=== PATIENT | male | born 1950 | race Caucasian/White ===

== ENCOUNTER 2017-03-18 10:36 | Inpatient (IN) | payer MEDICARE ==
[~2017-03-18] VITALS: Ht 180.3 cm; Wt 72.0 kg
[2017-03-18] MEDS ORDERED: ASPI81TA11 PO (12:48)
[2017-03-18] MEDS ORDERED: LAMI1TAB8 PO (12:56)
[2017-03-18] MEDS ORDERED: RILP25 PO (12:56)
[2017-03-18] MEDS ORDERED: ROSU1TAB4 PO (12:56)
[2017-03-18] MEDS ORDERED: OMEG100010 PO (12:56)
[2017-03-18] MEDS ORDERED: ENAL2.5T PO (12:56)
[2017-03-18] MEDS ORDERED: HYDR200T3 PO (12:56)
[2017-03-18] MEDS ORDERED: GABA600T PO (12:56)
[2017-03-18] MEDS ORDERED: VALA1TAB PO (13:00)
[2017-03-18] MEDS ORDERED: GLUC500C5 PO (13:00)
[2017-03-18] MEDS ORDERED: CHOL1CAP34 PO (13:00)
[2017-03-18] MEDS ORDERED: DOLU1TAB PO (13:00)
[2017-03-18] MEDS ORDERED: CETI10CA3 PO (13:00)
[2017-03-18] MEDS ORDERED: LACTCAP8 PO (13:00)
[2017-03-18] MEDS ORDERED: THERTAB17 PO (13:00)
[2017-03-21] VITALS (11 sets, daily range): BP systolic 117–186; BP diastolic 47–72; PULSE 65–108; RESP 10–20; TEMP 98.6–99.3; O2SAT 97–98
[2017-03-21] MEDS ORDERED: INSULIN HUMAN REGULAR 1,000 UNITS/10 ML VIAL SQ PRN (06:00)
[2017-03-21] MEDS ORDERED: METOPROLOL TARTRATE 25 MG TAB PO PRN (06:00)
[2017-03-21] MEDS ORDERED: SODIUM CHLORID 0.9% 500 ML IV PRN (06:00)
[2017-03-21] MEDS ORDERED: POVIDONE IODINE 5% (ANTISEPSIS KIT) 4 APPLICATIONS EACH NARE PRN (06:00)
[2017-03-21] MEDS ORDERED: LACTATED RINGER'S 1000 ML IV PRN (06:00)
[2017-03-21] MEDS ORDERED: CHLORHEXIDINE GLUCONATE 2 % 1 PACK (2 CLOTHS) TOPICAL PRN (06:00)
[2017-03-21] MEDS ORDERED: ALEV220T14 PO (06:32)
--- NOTE | 2017-03-21 06:50 | PD.VS.PN ---
Pre-operative Note Pre-operative diagnosis: PAD, L LE rest pain, severe aorto-iliac occlusive disease Planned procedure: aorto-bifemoral bypass Interval History: The patient has been feeling well since his clinic visits. Specifically, no F/C /N/V or other changes in his history that would preclude OR today. Labs: Hct 42 plt 186 INR 1.0 creatinine 1.0 Blood: T&C 2U EKG: no ST changes Imaging: CT reviewed - L iliac occlusion; B GIFT MANAGER disease Orders: NPO Vanc 1g IV OCTOR (PCN allergy) Post-operative destination: CVICU Operative site marked: No (not lateral surgery) Consent: Informed consent has been obtained from Montez Olivera. I have explained the procedure in detail and discussed the risks, benefits, and potential complications. All questions have been answered. Patient contact information: Shai De La Paz: [phone] Montez Perez MD Mar 21, 2017 06:50
[2017-03-21] MEDS ORDERED: PROTAMINE SULFATE 50 MG/5 ML VIAL ONE (06:59)
[2017-03-21] MEDS ORDERED: HEPARIN SODIUM - IV 10,000 UNITS/10 ML VIAL ONE (06:59)
[2017-03-21] MEDS ORDERED: THROMBIN (TOPICAL) 20,000 UNIT SPRAY KIT ONE (06:59)
[2017-03-21] MEDS ORDERED: VANCOMYCIN HCL 1000 MG VIAL ONE ×2 (07:10→11:10)
[2017-03-21] MEDS ORDERED: CHLORHEXIDINE GLUCONATE 2 % 1 PACK (2 CLOTHS) TOPICAL ONE (07:42)
[2017-03-21] MEDS ORDERED: fentaNYL CITRATE 250 MCG/5 ML AMP ONE (09:26)
[2017-03-21] MEDS ORDERED: PROPOFOL 200 MG/20 ML AMP IV ONE (11:59)
[2017-03-21] MEDS ORDERED: ONDANSETRON HCL 4 MG/2 ML VIAL IV PUSH ONE (11:59)
[2017-03-21] MEDS ORDERED: NORMOSOL R INJ 2,000 ML IV ONE (12:00)
[2017-03-21] MEDS ORDERED: LACTATED RINGER'S 1000 ML INJ 2,000 ML IV ONE (12:00)
--- NOTE | 2017-03-21 12:40 | HHI.PR ---
Immediate Post Op Note Procedure Date: Mar 21, 2017 Pre Op Diagnosis: PAD, L LE rest pain Post Op Diagnosis: PAD, L LE rest pain Surgeon: Montez Perez System Engineer(s): Sanya Palacios Procedure: 1. Aortobifemoral bypass (16x8 Dacron) 2. R profunda endarterectomy 3. L VENDING TECHNICIAN-SFA bypass (8mm Dacron) Findings: severe aortic calcifications Old L VENDING TECHNICIAN patch Additional Information: + Doppler signals B LE Complications: none apparent Specimen(s) removed: none Estimated blood loss: 550mL Anesthesia: General Drains: None Fluids: 4000 mL x'oid; 700 mL UOP IVF Patient to: Other (CVICU) Patient Condition: Good Implant/Devices: SEE IMPLANT LOG (if applicable) Date/Time of Procedure: SEE SURGICAL CARE RECORD Montez Perez MD Mar 21, 2017 12:39
[2017-03-21] MEDS ORDERED: NALOXONE HCL 0.4 MG/ML AMP IV PRN (12:45)
[2017-03-21] MEDS: LACTATED RINGER'S 1000 ML INJ 1,000 ML IV SCH (13:55)
[2017-03-21 13:57] LABS: MEAN CELL VOLUME 98.2 FL (80.0-100.0); MEAN CORPUSCULAR HEMOGLOBIN 32.6 PG (27.0-34.0); MEAN CORPUSCULAR HGB CONC 33.2 % (32.0-36.0); PLATELET COUNT 165 TH/MM3 (150-450); RED BLOOD COUNT 3.87 MIL/MM3 (4.50-5.90); RED CELL DISTRIBUTION WIDTH 13.7 % (11.6-17.2); REVIEW FLAG FINAL; WHITE BLOOD COUNT 17.7 TH/MM3 (4.0-11.0)
[2017-03-21] MEDS ORDERED: ENOXAPARIN SODIUM 30 MG/0.3 ML SYRINGE SQ SCH (14:00)
[2017-03-21] MEDS: PCA - TOTAL MG MORPHINE DELIVERED PER SHIFT SCH ×2 (14:00→22:00)
[2017-03-21] MEDS: MORPHINE SULFATE 30 MG/30 ML PCA IV SCH (14:09)
[2017-03-21 14:50] LABS: BICARBONATE 22.7 MEQ/L (21.0-32.0); POTASSIUM 4.1 MEQ/L (3.5-5.1)
[2017-03-21] MEDS ORDERED: hydrALAZINE HCL 20 MG/ML VIAL ONE (15:06)
[2017-03-21] MEDS: hydrALAZINE HCL 20 MG/ML VIAL IV PRN (15:57)
--- NOTE | 2017-03-21 16:00 | PD.CONS ---
[facility] Service Critical Care Medicine Consult Requested By Dr. Perez Reason for Consult post-operative hemodynamic management Primary Care Physician Teresa Greenberg MD History of Present Illness This is a 66yM with history of significant claudication, peripheral arterial disease, and left lower extremity rest pain. He underwent elective aortobifemoral bypass. Postoperatively he had good dopplerable PT pulses bilaterally. He received 4000 mL's crystalloid for an estimated blood loss of 550 mL's. Urine output was 700 mL's throughout the proximally 5 hour operative duration. He was extubated in of the case and taken to the intensive care unit for close monitoring and management of his hemodynamics. When I evaluated the patient he was recently postoperative and still arousing from anesthesia. I again confirmed his dopplerable PT pulses. The remainder of the history is unobtainable due to his somnolent state. He did tell me he denied significant pain and stated that his pain is adequately controlled. The remainder the review systems is negative unless otherwise specified in history of present illness. Review of Systems ROS Limitations: Clinical Condition, Altered Mental Status Respiratory: DENIES: Shortness of breath (patient arousing from anesthesia. limited ROS. otherwise negaive unless noted in the HPI.) Cardiovascular: DENIES: Chest pain ROS patient arousing from anesthesia. limited ROS. otherwise negaive unless noted in the HPI. Past Family Social History Allergies: Coded Allergies: Augmentin (Verified Allergy, Severe, blisters, 03/21/17) Bactrim (Verified Allergy, Severe, blisters, 03/21/17) Doxycycline (Verified Allergy, Severe, blisters, 03/21/17) Lactose (Verified Adverse Reaction, Severe, GI UPSET, 03/21/17) Past Medical History Hypertension Hyperlipidemia Peripheral vascular disease Past Surgical History Postop day 0 status post aortobifemoral bypass Reported Medications The patient's complete home medication list has been reviewed in the medical record area and the patient cannot provide me a complete list given his altered mental status arousing from anesthesia Active Ordered Medications See MAR Family History Reviewed and found to be noncontributory to his acute illness Social History Does not smoke Physical Exam Vital Signs Vital Signs Date Time Temp Pulse Resp B/P Pulse Ox O2 Delivery O2 Flow Rate FiO2 03/21/17 15:16 98.6 92 14 172/62 97 186/70 03/21/17 15:15 92 03/21/17 14:34 10 03/21/17 14:30 98.6 84 14 138/72 97 147/52 03/21/17 14:09 12 03/21/17 13:42 80 03/21/17 06:36 98.9 65 18 148/66 98 Physical Exam GENERAL: Middle-aged male, lying in bed, arousing from anesthesia, somnolent HEENT: Normocephalic. Atraumatic. Pupils equal, round, reactive, conjugate. Mucous membranes are moist NECK: Trachea is midline. There is no JVD. CHEST: Unlabored, equal chest rise, airway patent. On oxygen by face mask at 4 L CARDIOVASCULAR: Rate, regular rhythm. Systolic blood pressure 146. ABDOMEN: Soft, mildly and appropriately tender to palpation, nondistended. No guarding. Midline abdominal dressing clean dry and intact MUSCULOSKELETAL:. No peripheral edema. Bilateral groin dressings with wound vacs intact. No hematoma. Distal PT pulses dopplerable. NEUROLOGICAL: RASS -2. Recently arousing from anesthesia. No gross focal motor or sensory deficits. Laboratory Laboratory Tests Test 03/21/17 03/21/17 06:20 13:32 Blood Type O POSITIVE Antibody Screen NEGATIVE Crossmatch Leukocyte-Reduced Red Blood Cells Blood Bank Comment White Blood Count 17.7 Red Blood Count 3.87 Hemoglobin 12.6 Hematocrit 38.0 Mean Corpuscular Volume 98.2 Mean Corpuscular Hemoglobin 32.6 Mean Corpuscular Hemoglobin 33.2 Concent Red Cell Distribution Width 13.7 Platelet Count 165 Mean Platelet Volume 8.8 Sodium Level 142 Potassium Level 4.1 Chloride Level 108 Carbon Dioxide Level 22.7 Anion Gap 11 Blood Urea Nitrogen 17 Creatinine 1.18 Estimat Glomerular Filtration 61 Rate Random Glucose 148 Calcium Level 7.7 Result Diagram: 03/21/17 1332 03/21/17 1332 Assessment and Plan Assessment and Plan Assessment: This is a 66-year-old male postop day 0 status post aortobifemoral bypass for left lower extremity rest pain. Agree with admission to the ICU for close monitoring. s/p Aortobifemoral Bypass -- goal sbp 140 - 160 -- close monitoring of urine output -- frequent neurovascular checks Intravascular volume depletion -- 500cc LR bolus -- increase MIVF to 125 cc/hr Acute post-operative pain -- oxycodone, dilaudid prn NPO. SCDs. Remain in ICU. Critical Care medicine will continue to follow along. Johnson Guadalupe MD Mar 21, 2017 16:00
[2017-03-21] MEDS ORDERED: LACTATED RINGER'S 1000 ML INJ 500 ML IV ONE (17:15)
[2017-03-21] MEDS: RILPIVIRINE 25 MG TAB PO SCH (21:00)
[2017-03-21] MEDS: GABAPENTIN 300 MG CAP PO SCH (23:01)
[2017-03-21] MEDS: ATORVASTATIN 40 MG TAB PO SCH (23:01)
[2017-03-21] MEDS: ENALAPRIL MALEATE 2.5 MG TAB PO SCH (23:01)
[2017-03-21] MEDS: FAMOTIDINE 20 MG TAB PO SCH (23:01)
[2017-03-21] MEDS: valACYclovir HCL 500 MG TAB PO SCH (23:02)
[2017-03-22] VITALS (10 sets, daily range): BP systolic 138–183; BP diastolic 53–83; PULSE 97–110; RESP 15–20; TEMP 97.5–99.4; O2SAT 93–98
[2017-03-22] MEDS: LACTATED RINGER'S 1000 ML INJ 1,000 ML IV SCH ×3 (02:57→18:03)
[2017-03-22 05:33] LABS: HEMATOCRIT 37.9 % (39.0-51.0); MEAN CELL VOLUME 97.5 FL (80.0-100.0); MEAN CORPUSCULAR HEMOGLOBIN 31.6 PG (27.0-34.0); MEAN CORPUSCULAR HGB CONC 32.4 % (32.0-36.0); PLATELET COUNT 158 TH/MM3 (150-450); RED BLOOD COUNT 3.89 MIL/MM3 (4.50-5.90); RED CELL DISTRIBUTION WIDTH 13.8 % (11.6-17.2); REVIEW FLAG FINAL; WHITE BLOOD COUNT 11.3 TH/MM3 (4.0-11.0)
[2017-03-22] MEDS: PCA - TOTAL MG MORPHINE DELIVERED PER SHIFT SCH ×3 (06:00→22:00)
[2017-03-22 06:26] LABS: BICARBONATE 24.7 MEQ/L (21.0-32.0); POTASSIUM 4.3 MEQ/L (3.5-5.1)
--- NOTE | 2017-03-22 07:04 | PD.VS.PN ---
Subjective POD #: 1 Procedure(s): ABF and bilateral groin reconstructions Subjective/Hospital Course doing well overnight. Sore in abdomen but otherwise ok. Feet don't bother him Objective Vitals/I&O Date Time Temp Pulse Resp B/P Pulse Ox O2 Delivery O2 Flow Rate FiO2 03/22/17 00:00 99.2 104 18 146/64 97 138/53 03/22/17 00:00 97 Nasal Cannula 4.00 03/21/17 22:00 20 03/21/17 22:00 16 03/21/17 21:25 97 Nasal Cannula 4.00 03/21/17 20:00 99.3 108 18 117/47 97 03/21/17 20:00 97 Nasal Cannula 4.00 03/21/17 16:08 103 16 154/55 97 03/21/17 16:00 98 Nasal Cannula 4.00 03/21/17 15:16 98.6 92 14 172/62 97 186/70 03/21/17 15:15 92 03/21/17 14:34 10 03/21/17 14:30 98.6 84 14 138/72 97 147/52 03/21/17 14:09 12 03/21/17 13:42 80 03/21/17 13:00 97 Nasal Cannula 4.00 Exam: resting comfortably Pulses: Strong Doppler signals B PT Incisions: B groin vacs in place Laboratory Laboratory Tests Test 03/21/17 03/22/17 13:32 04:40 White Blood Count 17.7 11.3 Red Blood Count 3.87 3.89 Hemoglobin 12.6 12.3 Hematocrit 38.0 37.9 Mean Corpuscular Volume 98.2 97.5 Mean Corpuscular Hemoglobin 32.6 31.6 Mean Corpuscular Hemoglobin 33.2 32.4 Concent Red Cell Distribution Width 13.7 13.8 Platelet Count 165 158 Mean Platelet Volume 8.8 8.8 Sodium Level 142 139 Potassium Level 4.1 4.3 Chloride Level 108 106 Carbon Dioxide Level 22.7 24.7 Anion Gap 11 8 Blood Urea Nitrogen 17 19 Creatinine 1.18 1.09 Estimat Glomerular Filtration 61 67 Rate Random Glucose 148 119 Calcium Level 7.7 7.9 Assessment and Plan Plan doing well 1. AROBF - leave NGT in until flatus given very bilious in color; 2. OOB TC 3. Ok to have ice chips for comfort with NGT working 4. D/C Bandar 5. Ok to transfer to [facility] on tele Montez Perez MD Mar 22, 2017 07:04
[2017-03-22] MEDS: MORPHINE SULFATE 30 MG/30 ML PCA IV SCH ×2 (08:53→20:26)
[2017-03-22] MEDS ORDERED: NON-FORMULARY DRUG (Glucosamine 500 MG) PO SCH (09:00)
[2017-03-22] MEDS ORDERED: ERGOCALCIFEROL (VIT D2) 50,000 UNIT CAP PO SCH (09:00)
[2017-03-22] MEDS ORDERED: NON-FORMULARY DRUG (Omega-3 Fatty Acids (Omega 3 1000 mg) 1 CAP) PO SCH (09:00)
--- NOTE | 2017-03-22 09:12 | MP ---
cc: CCList DATE OF SURGERY 03/21/2017 PREOPERATIVE DIAGNOSIS Peripheral arterial occlusive disease, left lower extremity rest pain, aortoiliac occlusive disease. POSTOPERATIVE DIAGNOSIS Peripheral arterial occlusive disease, left lower extremity rest pain, aortoiliac occlusive disease. PROCEDURE 1. Aortobifemoral bypass graft. 2. Right profunda endarterectomy. 3. Left common femoral to superficial femoral artery bypass. MEDICATIONS Montez Perez MD GUNNER'S MATE G SURGEON Sanya Palacios ANESTHESIA General MEDICATIONS Mr. Olivera is a 66-year-old gentleman with peripheral vascular occlusive disease and failed stents and left groin reconstruction. He has no palpable femoral pulse on the left and he has rest pain. He is taken to the operating room for AV aortobifemoral bypass grafting for reconstruction. DESCRIPTION OF THE PROCEDURE Informed consent was obtained from the patient. He was taken to the operating room, placed supine on the operating table and an appropriate time-out was taken to ensure the patient's identity, the operative site and planned procedure. One gram of vancomycin was initiated prior to skin incision and will be discontinued after a single preoperative dose. Vancomycin was chosen because of the patient's penicillin allergy. Everyone in the room agreed with the time-out and we proceeded. He was prepped from his nipples to his toes. A vertical incision was made in the patient's groin and carried down to through subcutaneous tissues with electrocautery. The left groin was densely scarred due to previous groin arterial reconstruction, but the external iliac artery was dissected free and encircled with a Vesseloop as well as two profunda branches and the SFA. On the right-hand side, the two profunda branches were similarly identified and dissected free as well as the external artery and the SFA. We then turned our attention towards the abdominal exposure. A midline incision was made just below the Xiphoid below the umbilicus, carried down to the subcutaneous tissue with electrocautery. The fascia was divided with electrocautery and the perineum was sharply entered. The abdominal contents were explored. There was no obvious other pathology noted. The Bookwalter retractor was then set up and the intestines were swept to the patient's right hand side. The ligament Treitz was incised thereby freeing the proximal jejunum and the jejunum was swept to the patient's right hand side. The retroperitoneum was incised and the aorta was identified from the inferior mesenteric artery all the way up to the renal arteries. We found a place that was sufficient to place a clamp and then using blunt dissection, the retroperitoneal tunnel was created between the groin incisions and the terminal aorta. Long aortic clamps were placed through these tunnels. The patient was systemically heparinized and throughout the remainder of the case, the ACT was kept greater than 250. Proximal and distal control of the immediate infrarenal aorta was obtained with a [place] and [place]akey aortic clamps respectively and the aorta was opened longitudinally and a 16 x 8 Dacron was spatulated and sewn end-to-side with running 3-0 Prolene sutures. At the completion, it was flushed and remained hemostatic with several 4-0 pledgeted Prolene sutures. The aortic clamps were released and the end-to-side anastomosis looked quite nice and was hemostatic. Tay soft jaw clamps were placed on the aVF limbs and the limbs were then passed through the tunnels taking caution not to twist it. On the right-hand side, proximal and distal control of the external iliac artery, common femoral, and profunda were obtained with profunda clamps and a longitudinal arteriotomy was made with an 11 blade and extended with Elim scissors. The entire common femoral and profunda was endarterectomized without difficulty and a nice endpoint profunda was obtained. The graft was cut to an appropriate length, spatulated and sewn end-to-side to the right common femoral artery with running 5-0 Prolene suture. The lesion was flushed and remained hemostatic. Clamps were released. There was a nice Doppler signal in the profunda and SFA. On the left-hand side, the external iliac artery profunda branch and SFA were clamped with profunda clamps and a longitudinal arteriotomy was made through the previous patch and the patch was excised. The SFA was noted to be occluded proximally and the SFA was then dissected down further caudally at which point it was softer and it was then at this point clamped with profunda clamps and the proximal SFA was resected. The ABF limb was then cut to an appropriate length, spatulated and sewn onto the profunda and the common femoral artery using running 5-0 Prolene suture. At completion, it was flushed and noted to be hemostatic. Clamps were released. There was a nice pulse in the profunda. The clamp was then reapplied and the pepper of the patch was opened with an 11 blade and extended with Gerson scissors and a piece of 8 mm Dacron was spatulated and sewn end-to-side to the ABF limb using running 5-0 Prolene suture and then end-to-end to the SFA using running 5-0 Prolene suture. At the completion, all the clamps released and there was a nice pulse in the SFA. There were strong Doppler signals in the posterior tibial at the ankles. The heparin was reversed with protamine. Vancomycin powder was infiltrated and spread into the wounds in the groin. The abdominal contents were then explored. The aorta and its reconstruction was retroperitonealized with 2-0 Polysorb and the abdominal contents were allowed to return to their normal anatomic position. The nasogastric tube was palpated and noted to be in good position. The fascia was closed with #1 looped PDS. The skin was then closed with 2-0 Polysorb and 4-0 Monocryl. In the groins after achieving hemostasis, the groins were closed with 2-0 Polysorb, 3-0 Polysorb and 4-0 Monocryl. Sponge and needle counts were correct at the end of the case. I was present and scrubbed for the entire procedure. MD CUAUHTEMOC Peralta/PRISCILLA /7:19 AM /8:57 AM
[2017-03-22] MEDS ORDERED: NON-FORMULARY DRUG (Rosuvastatin 5 MG) PO SCH (12:45)
[2017-03-22] MEDS: CETIRIZINE HCL 10 MG TAB PO SCH (13:39)
[2017-03-22] MEDS: ENOXAPARIN SODIUM 30 MG/0.3 ML SYRINGE SQ SCH (13:39)
[2017-03-22] MEDS: DOLUTEGRAVIR SODIUM 50 MG TAB PO SCH (13:39)
[2017-03-22] MEDS: HYDROXYCHLOROQUINE SULFATE 200 MG TAB PO SCH (13:39)
[2017-03-22] MEDS: FAMOTIDINE 20 MG TAB PO SCH ×2 (13:41→22:16)
[2017-03-22] MEDS: hydrALAZINE HCL 20 MG/ML VIAL IV PRN (15:16)
--- NOTE | 2017-03-22 16:29 | HHI.CCPN ---
Subjective Remarks/Hospital Course Hospital Course: This is a 66yM with history of significant claudication, peripheral arterial disease, and left lower extremity rest pain. He underwent elective aortobifemoral bypass. Postoperatively he had good dopplerable PT pulses bilaterally. He received 4000 mL's crystalloid for an estimated blood loss of 550 mL's. Urine output was 700 mL's throughout the proximally 5 hour operative duration. He was extubated in of the case and taken to the intensive care unit for close monitoring and management of his hemodynamics. When I evaluated the patient he was recently postoperative and still arousing from anesthesia. I again confirmed his dopplerable PT pulses. The remainder of the history is unobtainable due to his somnolent state. He did tell me he denied significant pain and stated that his pain is adequately controlled. The remainder the review systems is negative unless otherwise specified in history of present illness. Subjective: 03/22: doing well. pain adequately controlled. no ROBF yet. Objective Vital Signs Date Time Temp Pulse Resp B/P Pulse Ox O2 Delivery O2 Flow Rate FiO2 03/22/17 15:21 97.5 103 16 177/83 96 183/73 03/22/17 15:21 Nasal Cannula 5.00 Intake and Output 03/21/17 03/21/17 03/21/17 07:59 15:59 23:59 Intake Total 600 ml Output Total 425 ml Balance 175 ml Result Diagram: 03/22/1743903/22/17439 Objective Remarks GENERAL: Middle-aged male, lying in bed, no acute distress. HEENT: Normocephalic. Atraumatic. Pupils equal, round, reactive, conjugate. Mucous membranes are moist NECK: Trachea is midline. There is no JVD. CHEST: Unlabored, equal chest rise, airway patent. nc o2. CARDIOVASCULAR: Rate, regular rhythm. sinus by tele. ABDOMEN: Soft, mildly and appropriately tender to palpation, nondistended. No guarding. Midline abdominal dressing clean dry and intact MUSCULOSKELETAL:. No peripheral edema. Bilateral groin dressings with wound vacs intact. No hematoma. Distal PT pulses dopplerable. NEUROLOGICAL: RASS 0. fc x 4. A/P Assessment and Plan Assessment: This is a 66-year-old male postop day 1 status post aortobifemoral bypass for left lower extremity rest pain. Clinically doing well. ok for transfer to floor. s/p Aortobifemoral Bypass -- goal sbp 140 - 160 -- close monitoring of urine output -- frequent neurovascular checks Intravascular volume depletion -- decrease MIVF to 75 cc/hr Acute post-operative pain -- oxycodone, dilaudid prn NPO. SCDs. CCM will sign-off. Johnson Guadalupe MD Mar 22, 2017 16:29
[2017-03-22] MEDS: RILPIVIRINE 25 MG TAB PO SCH (22:16)
[2017-03-22] MEDS: ATORVASTATIN 40 MG TAB PO SCH (22:16)
[2017-03-22] MEDS: GABAPENTIN 300 MG CAP PO SCH (22:16)
[2017-03-22] MEDS: valACYclovir HCL 500 MG TAB PO SCH (22:16)
[2017-03-22] MEDS: ENALAPRIL MALEATE 2.5 MG TAB PO SCH (22:16)
[2017-03-23] VITALS (23 sets, daily range): BP systolic 128–159; BP diastolic 59–73; PULSE 101–117; RESP 16–18; TEMP 98–100.2; O2SAT 94–96
[2017-03-23] MEDS: PCA - TOTAL MG MORPHINE DELIVERED PER SHIFT SCH ×3 (05:49→21:23)
--- NOTE | 2017-03-23 09:09 | PD.VS.PN ---
Subjective POD #: 2 Procedure(s): ABF and bilateral groin reconstructions Subjective/Hospital Course c/o abdominal soreness and no flatus yet groins also sore feet ok Objective Vitals/I&O Date Time Temp Pulse Resp B/P Pulse Ox O2 Delivery O2 Flow Rate FiO2 03/23/17 06:00 18 03/23/17 05:49 16 03/23/17 04:00 98.2 114 16 159/69 94 03/23/17 03:35 95 Nasal Cannula 3.00 03/23/17 03:35 117 03/23/17 00:00 95 Nasal Cannula 3.00 03/23/17 00:00 117 03/23/17 00:00 18 03/23/17 00:00 98.6 117 16 146/69 95 03/22/17 22:00 18 03/22/17 22:00 16 03/22/17 20:26 18 03/22/17 20:00 97 Nasal Cannula 4.00 03/22/17 20:00 98.6 110 18 153/76 97 Arterial Line 03/22/17 20:00 110 03/22/17 20:00 18 03/22/17 19:46 96 Nasal Cannula 3.00 03/22/17 15:21 97.5 103 16 177/83 96 183/73 03/22/17 15:21 103 03/22/17 15:21 96 Nasal Cannula 5.00 03/22/17 15:21 15 03/22/17 14:00 16 03/22/17 11:00 166/71 169/57 03/22/17 11:00 97 03/22/17 11:00 93 Nasal Cannula 5.00 03/22/17 11:00 99.4 97 16 166/71 93 169/57 03/23/17 03/23/17 03/23/17 06:59 14:59 22:59 Intake Total 803 ml Output Total 430 ml Balance 373 ml Exam: sitting in chair abdomen slightly distended NGT output bilious Feet warm groins soft Assessment and Plan Plan doing well 1. AROBF - leave NGT in until flatus given very bilious in color; 2. May have to replace Portillo if no UOP after out 3. Ok to have ice chips for comfort with NGT working 4. Continue PT Discharge Planning likely mid-week Montez Perez MD Mar 23, 2017 09:08
[2017-03-23] MEDS: LACTATED RINGER'S 1000 ML INJ 1,000 ML IV SCH ×2 (09:45→23:30)
[2017-03-23] MEDS: DOLUTEGRAVIR SODIUM 50 MG TAB PO SCH (09:46)
[2017-03-23] MEDS: FAMOTIDINE 20 MG TAB PO SCH ×2 (09:46→21:11)
[2017-03-23] MEDS: CETIRIZINE HCL 10 MG TAB PO SCH (09:46)
[2017-03-23] MEDS: ASPIRIN 325 MG TAB PO SCH (09:57)
[2017-03-23] MEDS: ENOXAPARIN SODIUM 30 MG/0.3 ML SYRINGE SQ SCH (11:48)
[2017-03-23] MEDS: RILPIVIRINE 25 MG TAB PO SCH (21:10)
[2017-03-23] MEDS: GABAPENTIN 300 MG CAP PO SCH (21:10)
[2017-03-23] MEDS: valACYclovir HCL 500 MG TAB PO SCH (21:11)
[2017-03-23] MEDS: ENALAPRIL MALEATE 2.5 MG TAB PO SCH (21:11)
[2017-03-23] MEDS: METOPROLOL TARTRATE 25 MG TAB PO SCH (21:11)
[2017-03-23] MEDS: ATORVASTATIN 40 MG TAB PO SCH (21:11)
[2017-03-24] VITALS (29 sets, daily range): BP systolic 129–161; BP diastolic 57–72; PULSE 84–103; RESP 16–20; TEMP 97.8–100.3; O2SAT 92–95
[2017-03-24] MEDS: MORPHINE SULFATE 30 MG/30 ML PCA IV SCH ×2 (02:59→23:32)
[2017-03-24] MEDS: PCA - TOTAL MG MORPHINE DELIVERED PER SHIFT SCH ×3 (06:00→22:00)
[2017-03-24 06:05] LABS: HEMATOCRIT 30.7 % (39.0-51.0); MEAN CELL VOLUME 97.6 FL (80.0-100.0); MEAN CORPUSCULAR HEMOGLOBIN 33.2 PG (27.0-34.0); PLATELET COUNT 145 TH/MM3 (150-450); RED BLOOD COUNT 3.15 MIL/MM3 (4.50-5.90); RED CELL DISTRIBUTION WIDTH 13.3 % (11.6-17.2); REVIEW FLAG FINAL
[2017-03-24 06:33] LABS: POTASSIUM 3.7 MEQ/L (3.5-5.1)
--- NOTE | 2017-03-24 07:34 | PD.VS.PN ---
Subjective POD #: 3 Procedure(s): ABF and bilateral groin reconstructions Subjective/Hospital Course Bandar replaced yesterday which made him feel better. Abdomen still distended No flatus yet but no nausea Objective Vitals/I&O Date Time Temp Pulse Resp B/P Pulse Ox O2 Delivery O2 Flow Rate FiO2 03/24/17 06:11 18 03/24/17 06:00 98 03/24/17 06:00 18 03/24/17 05:05 94 Nasal Cannula 2.00 03/24/17 05:04 98.5 95 16 138/66 94 03/24/17 05:00 100 03/24/17 04:00 96 03/24/17 03:00 100 03/24/17 02:59 18 03/24/17 02:00 98 03/24/17 01:00 100 03/24/17 00:00 94 03/23/17 23:43 96 Nasal Cannula 2.00 03/23/17 23:41 99.0 102 18 147/66 96 03/23/17 23:00 102 03/23/17 22:00 102 03/23/17 22:00 16 03/23/17 21:23 16 03/23/17 21:00 114 03/23/17 20:00 106 03/23/17 19:45 100.2 109 18 141/64 95 03/23/17 19:00 107 03/23/17 19:00 96 Nasal Cannula 2.00 03/23/17 18:00 108 03/23/17 17:00 108 03/23/17 16:00 106 03/23/17 15:00 98.0 105 16 158/59 95 03/23/17 15:00 16 03/23/17 15:00 95 Nasal Cannula 1.00 03/23/17 14:00 107 03/23/17 13:54 16 03/23/17 13:00 101 03/23/17 12:00 103 03/23/17 11:00 98.1 102 16 128/60 95 03/23/17 11:00 102 03/23/17 11:00 95 Nasal Cannula 2.00 03/23/17 11:00 16 03/23/17 10:00 101 03/23/17 09:00 104 03/23/17 09:00 16 03/23/17 09:00 96 Nasal Cannula 3.00 03/23/17 09:00 98.4 104 16 151/73 96 03/23/17 08:00 103 03/24/17 03/24/17 03/24/17 07:00 15:00 23:00 Intake Total 780 ml Output Total 970 ml Balance -190 ml Exam: abdomen less distended than yesterday Groin vacs in place Strong pedal signals Laboratory Laboratory Tests Test 03/24/17 05:54 White Blood Count 13.0 Red Blood Count 3.15 Hemoglobin 10.4 Hematocrit 30.7 Mean Corpuscular Volume 97.6 Mean Corpuscular Hemoglobin 33.2 Mean Corpuscular Hemoglobin 34.0 Concent Red Cell Distribution Width 13.3 Platelet Count 145 Mean Platelet Volume 8.9 Sodium Level 141 Potassium Level 3.7 Chloride Level 107 Carbon Dioxide Level 25.0 Anion Gap 9 Blood Urea Nitrogen 21 Creatinine 0.91 Estimat Glomerular Filtration 83 Rate Random Glucose 83 Calcium Level 8.4 Assessment and Plan Plan doing well 1. AROBF - NGT removed this morning and will progress to clear liq when + flatus ; 2. Remove Portillo tomorrow 3. Continue PT/OOB Discharge Planning likely mid-week Montez Perez MD Mar 24, 2017 07:34
[2017-03-24] MEDS: CETIRIZINE HCL 10 MG TAB PO SCH (09:48)
[2017-03-24] MEDS: ASPIRIN 325 MG TAB PO SCH (09:49)
[2017-03-24] MEDS: METOPROLOL TARTRATE 25 MG TAB PO SCH ×2 (09:49→22:16)
[2017-03-24] MEDS: FAMOTIDINE 20 MG TAB PO SCH ×2 (09:50→22:15)
[2017-03-24] MEDS: DOLUTEGRAVIR SODIUM 50 MG TAB PO SCH (09:50)
[2017-03-24] MEDS: ENOXAPARIN SODIUM 30 MG/0.3 ML SYRINGE SQ SCH (12:08)
[2017-03-24] MEDS: LACTATED RINGER'S 1000 ML INJ 1,000 ML IV SCH (14:22)
[2017-03-24] MEDS: valACYclovir HCL 500 MG TAB PO SCH ×3 (21:00→22:27)
[2017-03-24] MEDS: GABAPENTIN 300 MG CAP PO SCH (22:15)
[2017-03-24] MEDS: ENALAPRIL MALEATE 2.5 MG TAB PO SCH (22:15)
[2017-03-24] MEDS: ATORVASTATIN 40 MG TAB PO SCH (22:15)
[2017-03-24] MEDS: RILPIVIRINE 25 MG TAB PO SCH (22:16)
[2017-03-25] VITALS (27 sets, daily range): BP systolic 113–175; BP diastolic 54–78; PULSE 80–96; RESP 18–20; TEMP 97.8–99.5; O2SAT 92–97
[2017-03-25] MEDS: PCA - TOTAL MG MORPHINE DELIVERED PER SHIFT SCH (04:49)
[2017-03-25] MEDS: LACTATED RINGER'S 1000 ML INJ 1,000 ML IV SCH (06:17)
--- NOTE | 2017-03-25 07:45 | PD.VS.PN ---
Subjective POD #: 4 Procedure(s): ABF and bilateral groin reconstructions Subjective/Hospital Course no flatus but no nausea since NGT removed yesterday morning Sitting in chair Objective Vitals/I&O Date Time Temp Pulse Resp B/P Pulse Ox O2 Delivery O2 Flow Rate FiO2 03/25/17 07:00 94 Nasal Cannula 2.00 03/25/17 07:00 86 03/25/17 07:00 98.9 90 20 129/66 94 03/25/17 06:00 86 03/25/17 05:00 88 03/25/17 04:50 18 03/25/17 04:49 18 03/25/17 04:44 94 Nasal Cannula 2.00 03/25/17 04:43 98.9 90 18 121/67 94 03/25/17 04:00 86 03/25/17 03:00 90 03/25/17 02:00 92 03/25/17 01:00 86 03/25/17 00:23 95 Nasal Cannula 2.00 03/25/17 00:00 90 03/24/17 23:32 18 03/24/17 23:15 94 18 136/68 95 03/24/17 23:00 95 03/24/17 22:00 18 03/24/17 22:00 96 03/24/17 22:00 18 03/24/17 21:00 96 03/24/17 20:00 96 03/24/17 19:50 94 Nasal Cannula 2.00 03/24/17 19:50 98.5 95 16 161/72 94 03/24/17 19:00 87 03/24/17 18:03 89 03/24/17 17:11 87 03/24/17 16:33 95 Nasal Cannula 2.00 03/24/17 16:00 87 03/24/17 15:04 95 Nasal Cannula 2.00 03/24/17 15:04 86 03/24/17 15:04 97.8 91 18 130/65 95 03/24/17 14:00 96 03/24/17 14:00 18 03/24/17 14:00 18 03/24/17 13:00 94 03/24/17 12:00 84 03/24/17 11:00 85 03/24/17 11:00 93 Nasal Cannula 2.00 03/24/17 11:00 98.7 96 20 133/65 93 03/24/17 10:00 96 03/24/17 09:00 92 03/24/17 08:00 98 03/25/17 03/25/17 03/25/17 06:59 14:59 22:59 Intake Total 990 ml Output Total 775 ml Balance 215 ml Exam: resting comfortably abdomen mildly tender Assessment and Plan Plan doing well 1. clear liq diet 2. PT/OOB and ambulate 3. Portillo out again today 4. po pain meds and d/c Portillo Discharge Planning likely mid-week Montez Perez MD Mar 25, 2017 07:45
[2017-03-25] MEDS: DOLUTEGRAVIR SODIUM 50 MG TAB PO SCH (09:04)
[2017-03-25] MEDS: CETIRIZINE HCL 10 MG TAB PO SCH (09:05)
[2017-03-25] MEDS: FAMOTIDINE 20 MG TAB PO SCH ×2 (09:05→20:05)
[2017-03-25] MEDS: ASPIRIN 325 MG TAB PO SCH (09:05)
[2017-03-25] MEDS: METOPROLOL TARTRATE 25 MG TAB PO SCH ×2 (09:05→20:03)
[2017-03-25] MEDS: HYDROXYCHLOROQUINE SULFATE 200 MG TAB PO SCH (09:05)
[2017-03-25] MEDS: ENOXAPARIN SODIUM 30 MG/0.3 ML SYRINGE SQ SCH (12:04)
[2017-03-25] MEDS: oxyCODONE/ACETAMINOPHEN 5 MG/325 MG TAB PO PRN ×2 (14:21→20:04)
[2017-03-25] MEDS: valACYclovir HCL 500 MG TAB PO SCH (20:03)
[2017-03-25] MEDS: GABAPENTIN 300 MG CAP PO SCH (20:03)
[2017-03-25] MEDS: ATORVASTATIN 40 MG TAB PO SCH (20:03)
[2017-03-25] MEDS: ENALAPRIL MALEATE 2.5 MG TAB PO SCH (20:04)
[2017-03-25] MEDS: RILPIVIRINE 25 MG TAB PO SCH (20:14)
[2017-03-26] VITALS (25 sets, daily range): BP systolic 112–169; BP diastolic 54–83; PULSE 73–108; RESP 16–21; TEMP 98–99.9; O2SAT 91–97
[2017-03-26 06:23] LABS: HEMATOCRIT 31.1 % (39.0-51.0); MEAN CELL VOLUME 95.9 FL (80.0-100.0); MEAN CORPUSCULAR HEMOGLOBIN 33.4 PG (27.0-34.0); MEAN CORPUSCULAR HGB CONC 34.9 % (32.0-36.0); PLATELET COUNT 186 TH/MM3 (150-450); RED BLOOD COUNT 3.24 MIL/MM3 (4.50-5.90); REVIEW FLAG FINAL; WHITE BLOOD COUNT 8.8 TH/MM3 (4.0-11.0)
[2017-03-26 06:50] LABS: BICARBONATE 24.8 MEQ/L (21.0-32.0); POTASSIUM 3.1 MEQ/L (3.5-5.1)
--- NOTE | 2017-03-26 07:29 | PD.VS.PN ---
Subjective POD #: 5 Procedure(s): ABF and bilateral groin reconstructions Subjective/Hospital Course feels well; + flatus. + UOP with Portillo out OOB and ambulated Objective Vitals/I&O Date Time Temp Pulse Resp B/P Pulse Ox O2 Delivery O2 Flow Rate FiO2 03/26/17 06:01 97 03/26/17 05:01 101 03/26/17 04:06 85 03/26/17 03:01 91 Room Air 03/26/17 03:01 90 03/26/17 03:01 98.5 95 18 169/78 91 03/26/17 02:01 102 03/26/17 01:01 84 03/26/17 00:01 82 03/25/17 23:01 98.6 83 18 126/59 92 03/25/17 23:01 92 Room Air 03/25/17 23:01 82 03/25/17 22:01 18 03/25/17 22:01 86 03/25/17 21:01 90 03/25/17 20:01 80 03/25/17 19:01 82 03/25/17 19:01 99.5 86 18 175/78 97 03/25/17 19:01 97 Room Air 03/25/17 18:00 83 03/25/17 17:00 81 03/25/17 16:00 91 03/25/17 15:49 19 03/25/17 15:00 93 03/25/17 15:00 98.0 90 18 134/64 94 03/25/17 15:00 94 Room Air 03/25/17 14:02 80 03/25/17 13:00 92 03/25/17 12:00 87 03/25/17 11:05 95 Nasal Cannula 1.00 03/25/17 11:05 97.8 83 20 113/54 95 03/25/17 11:00 84 03/25/17 10:00 96 03/25/17 09:00 86 03/25/17 08:00 84 03/26/17 03/26/17 03/26/17 07:00 15:00 23:00 Intake Total 240 ml Output Total 650 ml Balance -410 ml Exam: abdomen slightly distended, baseline Feet warm Got OOB with me and ambulated well to chair Incisions: abdominal and groin incisions c/d/i Laboratory Laboratory Tests Test 03/26/17 05:26 White Blood Count 8.8 Red Blood Count 3.24 Hemoglobin 10.8 Hematocrit 31.1 Mean Corpuscular Volume 95.9 Mean Corpuscular Hemoglobin 33.4 Mean Corpuscular Hemoglobin 34.9 Concent Red Cell Distribution Width 13.0 Platelet Count 186 Mean Platelet Volume 8.9 Sodium Level 141 Potassium Level 3.1 Chloride Level 106 Carbon Dioxide Level 24.8 Anion Gap 10 Blood Urea Nitrogen 19 Creatinine 0.84 Estimat Glomerular Filtration 91 Rate Random Glucose 89 Calcium Level 8.5 Assessment and Plan Plan doing well 1. reg diet 2. PT/OOB and ambulate 3. Replace K and recheck BMP tomorrow 4. d/c planning Discharge Planning to rehab Montez Perez MD Mar 26, 2017 07:29
[2017-03-26] MEDS: METOPROLOL TARTRATE 25 MG TAB PO SCH ×2 (08:52→21:42)
[2017-03-26] MEDS: CETIRIZINE HCL 10 MG TAB PO SCH (08:52)
[2017-03-26] MEDS: ASPIRIN 325 MG TAB PO SCH (08:52)
[2017-03-26] MEDS: oxyCODONE/ACETAMINOPHEN 5 MG/325 MG TAB PO PRN ×3 (08:52→23:05)
[2017-03-26] MEDS: FAMOTIDINE 20 MG TAB PO SCH ×2 (08:52→21:41)
[2017-03-26] MEDS: DOLUTEGRAVIR SODIUM 50 MG TAB PO SCH (08:53)
[2017-03-26] MEDS: POTASSIUM CHLORIDE 10 MEQ CONTROLLED RELEASE TAB PO SCH ×2 (08:53→21:42)
[2017-03-26] MEDS: ENOXAPARIN SODIUM 30 MG/0.3 ML SYRINGE SQ SCH (12:32)
[2017-03-26] MEDS: RILPIVIRINE 25 MG TAB PO SCH (21:41)
[2017-03-26] MEDS: valACYclovir HCL 500 MG TAB PO SCH (21:41)
[2017-03-26] MEDS: ATORVASTATIN 40 MG TAB PO SCH (21:41)
[2017-03-26] MEDS: GABAPENTIN 300 MG CAP PO SCH (21:41)
[2017-03-26] MEDS: ENALAPRIL MALEATE 2.5 MG TAB PO SCH (21:42)
[2017-03-27] VITALS (16 sets, daily range): BP systolic 123–147; BP diastolic 62–68; PULSE 79–102; RESP 16–20; TEMP 98.3–100.5; O2SAT 93–96
--- NOTE | 2017-03-27 06:43 | PD.VS.PN ---
Subjective POD #: 6 Procedure(s): ABF and bilateral groin reconstructions Subjective/Hospital Course feels well; + flatus and BM x 2. No nausea OOB and ambulating with assistance pain controlled Objective Vitals/I&O Date Time Temp Pulse Resp B/P Pulse Ox O2 Delivery O2 Flow Rate FiO2 03/27/17 06:00 97 03/27/17 05:58 94 03/27/17 04:24 102 03/27/17 03:10 98.4 85 16 142/68 94 03/27/17 03:10 94 Room Air 03/27/17 03:00 79 03/27/17 02:00 84 03/27/17 01:00 86 03/27/17 00:12 82 03/26/17 23:30 98.3 89 18 158/83 95 03/26/17 23:30 95 Room Air 03/26/17 23:00 80 03/26/17 22:00 86 03/26/17 21:00 80 03/26/17 20:15 82 03/26/17 19:05 98.6 85 16 163/73 95 03/26/17 19:05 78 03/26/17 19:05 95 Room Air 03/26/17 18:00 78 03/26/17 17:36 18 03/26/17 17:00 83 03/26/17 16:00 80 03/26/17 15:00 98.0 75 18 152/73 97 03/26/17 15:00 97 Room Air 03/26/17 15:00 75 03/26/17 14:00 88 03/26/17 13:00 75 03/26/17 12:02 76 03/26/17 11:00 93 Room Air 03/26/17 11:00 73 03/26/17 11:00 98.1 83 18 112/54 93 03/26/17 10:03 82 03/26/17 09:00 94 03/26/17 08:00 100 03/26/17 07:00 108 03/26/17 07:00 99.9 98 21 149/72 94 03/26/17 07:00 94 Room Air 03/27/17 03/27/17 03/27/17 07:00 15:00 23:00 Intake Total 240 ml Output Total 500 ml Balance -260 ml Exam: Resting comfortably Abdominal and groin incisions c/d/i Feet warm Motor intact Assessment and Plan Plan doing well 1. reg diet 2. PT/OOB and ambulate 3. f/u BMP - pending today 4. d/c planning Discharge Planning tomorrow to rehab vs home, pending case management and PT input Montez Perez MD Mar 27, 2017 06:43
[2017-03-27 07:00] LABS: BICARBONATE 23.9 MEQ/L (21.0-32.0); POTASSIUM 3.4 MEQ/L (3.5-5.1)
[2017-03-27] MEDS: oxyCODONE/ACETAMINOPHEN 5 MG/325 MG TAB PO PRN ×2 (07:20→12:04)
[2017-03-27] MEDS ORDERED: OXYC1TAB63 PO (09:10)
--- NOTE | 2017-03-27 09:26 | PD.VS.DC ---
Discharge Summary Admission Date: Mar 21, 2017 at 05:31 Discharge Date: Mar 28, 2017 Admission Diagnosis: (1) Aortoiliac occlusive disease (2) PAD (peripheral artery disease) Discharge Diagnosis: (1) Aortoiliac occlusive disease Status: Acute (2) PAD (peripheral artery disease) Status: Acute Brief History from admission Mr. Olivera is a 66/M patient who has a PMH of PAD, L LE rest pain and severe aorto-iliac occlusive disease. Over the past several months patient developed worsening claudication with rest pain. Pt was admitted for surgical intervention Procedure(s): ABF and bilateral groin reconstructions Significant Findings GENERAL: Pt alert in NAD SKIN: Warm and dry/ Abdominal Incision intact with surgical glue w/o R/D/S. Bilat Groin incisions intact with surgical glue/ NO hematoma/R/D/S/O present MUSCULOSKELETAL: No cyanosis, or edema BILAT LE warm with motor intact Laboratory Tests Test 03/26/17 03/27/17 05:26 05:54 Red Blood Count 3.24 MIL/MM3 (4.50-5.90) Hemoglobin 10.8 GM/DL (13.0-17.0) Hematocrit 31.1 % (39.0-51.0) Potassium Level 3.1 MEQ/L 3.4 MEQ/L (3.5-5.1) (3.5-5.1) Blood Urea Nitrogen 19 MG/DL (7-18) Hospital Course: Mr. Olivera is a 66/M patient who has a PMH of PAD, L LE rest pain and severe aorto-iliac occlusive disease. Over the past several months patient developed worsening claudication with rest pain. Pt was admitted for surgical intervention Pt is s/p ABF and bilateral groin reconstructions Pt has done well post op w/o complications Pt will be d/c to a SNF to continue rehabilitative services Allergies Coded Allergies Type Severity Reaction Last Updated Verified Augmentin Allergy Severe blisters 03/21/17 Yes Bactrim Allergy Severe blisters 03/21/17 Yes Doxycycline Allergy Severe blisters 03/21/17 Yes Lactose Adverse Reaction Severe GI UPSET 03/21/17 Yes 03/25///////177// 06:00 18:00 06:00 18:00 06:00 18:00 Intake Total 990 ml 630 ml 240 ml 720 ml Output Total 775 ml 470 ml 650 ml 1250 ml Balance 215 ml 160 ml -410 ml -530 ml Intake Oral 240 ml 630 ml 240 ml 720 ml IV Total 750 ml Output Urine Total 775 ml 470 ml 650 ml 1250 ml # Bowel Movements 0 1 Laboratory Tests Test 03/26/17 03/27/17 05:26 05:54 White Blood Count 8.8 TH/MM3 Red Blood Count 3.24 MIL/MM3 Hemoglobin 10.8 GM/DL Hematocrit 31.1 % Mean Corpuscular Volume 95.9 FL Mean Corpuscular Hemoglobin 33.4 PG Mean Corpuscular Hemoglobin 34.9 % Concent Red Cell Distribution Width 13.0 % Platelet Count 186 TH/MM3 Mean Platelet Volume 8.9 FL Sodium Level 141 MEQ/L 141 MEQ/L Potassium Level 3.1 MEQ/L 3.4 MEQ/L Chloride Level 106 MEQ/L 106 MEQ/L Carbon Dioxide Level 24.8 MEQ/L 23.9 MEQ/L Anion Gap 10 MEQ/L 11 MEQ/L Blood Urea Nitrogen 19 MG/DL 17 MG/DL Creatinine 0.84 MG/DL 0.82 MG/DL Estimat Glomerular Filtration 91 ML/MIN 93 ML/MIN Rate Random Glucose 89 MG/DL 82 MG/DL Calcium Level 8.5 MG/DL 8.7 MG/DL Procedure Category Date Status Time Diet Clear Liquid DIET 03/25/17 Complete Breakfast ^ Other Nursing Orders YUSRA 03/25/17 In Process 07:41 Oxycodone-Acetamin MED 03/25/17 In Process 5-325 Mg (Percocet 07:45 Remove Urinary YUSRA 03/25/17 In Process Catheter 07:41 Basic Metabolic Panel LAB 03/26/17 Complete (Bmp) 06:00 Cbc No Diff, Includes LAB 03/26/17 Complete Plts 06:00 Potassium Chloride MED 03/26/17 Complete (Kcl) 09:00 Diet Heart Healthy DIET 03/26/17 Transmitted Breakfast ^ Other Nursing Orders UYSRA 03/26/17 In Process 07:25 Basic Metabolic Panel LAB 03/27/17 Complete (Bmp) 06:00 (Hub Use Only)Inp Phy CONS 03/26/17 Transmitted Cons/Ref Potassium Chloride MED 03/27/17 In Process (Kcl) 09:00 Basic Metabolic Panel LAB 03/28/17 Verified (Bmp) 06:00 Attending Discharge DISCHARGE 03/27/17 Transmitted Order Vital Signs Date Time Temp Pulse Resp B/P Pulse Ox O2 Delivery O2 Flow Rate FiO2 03/27/17 06:00 97 03/27/17 05:58 94 03/27/17 04:24 102 03/27/17 03:10 98.4 85 16 142/68 94 03/27/17 03:10 94 Room Air 03/27/17 03:00 79 03/27/17 02:00 84 03/27/17 01:00 86 03/27/17 00:12 82 03/26/17 23:30 98.3 89 18 158/83 95 03/26/17 23:30 95 Room Air 03/26/17 23:00 80 03/26/17 22:00 86 03/26/17 21:00 80 03/26/17 20:15 82 03/26/17 19:05 98.6 85 16 163/73 95 03/26/17 19:05 78 03/26/17 19:05 95 Room Air 03/26/17 18:00 78 03/26/17 17:36 18 03/26/17 17:00 83 03/26/17 16:00 80 03/26/17 15:00 98.0 75 18 152/73 97 03/26/17 15:00 97 Room Air 03/26/17 15:00 75 03/26/17 14:00 88 03/26/17 13:00 75 03/26/17 12:02 76 03/26/17 11:00 93 Room Air 03/26/17 11:00 73 03/26/17 11:00 98.1 83 18 112/54 93 03/26/17 10:03 82 03/26/17 09:00 94 03/26/17 08:00 100 03/26/17 07:00 108 03/26/17 07:00 99.9 98 21 149/72 94 03/26/17 07:00 94 Room Air 03/26/17 06:01 97 03/26/17 05:01 101 03/26/17 04:06 85 03/26/17 03:01 91 Room Air 03/26/17 03:01 90 03/26/17 03:01 98.5 95 18 169/78 91 03/26/17 02:01 102 03/26/17 01:01 84 03/26/17 00:01 82 03/25/17 23:01 98.6 83 18 126/59 92 03/25/17 23:01 92 Room Air 03/25/17 23:01 82 03/25/17 22:01 18 03/25/17 22:01 86 03/25/17 21:01 90 03/25/17 20:01 80 03/25/17 19:01 82 03/25/17 19:01 99.5 86 18 175/78 97 03/25/17 19:01 97 Room Air 03/25/17 18:00 83 03/25/17 17:00 81 03/25/17 16:00 91 03/25/17 15:00 93 03/25/17 15:00 98.0 90 18 134/64 94 03/25/17 15:00 94 Room Air 03/25/17 14:02 80 03/25/17 13:00 92 03/25/17 12:00 87 03/25/17 11:05 95 Nasal Cannula 1.00 03/25/17 11:05 97.8 83 20 113/54 95 03/25/17 11:00 84 03/25/17 10:00 96 03/25/17 09:00 86 03/25/17 08:00 84 03/25/17 07:00 94 Nasal Cannula 2.00 03/25/17 07:00 86 03/25/17 07:00 98.9 90 20 129/66 94 03/25/17 06:00 86 03/25/17 05:00 88 03/25/17 04:50 18 03/25/17 04:49 18 03/25/17 04:44 94 Nasal Cannula 2.00 03/25/17 04:43 98.9 90 18 121/67 94 03/25/17 04:00 86 03/25/17 03:00 90 03/25/17 02:00 92 03/25/17 01:00 86 03/25/17 00:23 95 Nasal Cannula 2.00 03/25/17 00:00 90 03/24/17 23:32 18 03/24/17 23:15 94 18 136/68 95 03/24/17 23:00 95 03/24/17 22:00 18 03/24/17 22:00 96 03/24/17 22:00 18 03/24/17 21:00 96 03/24/17 20:00 96 03/24/17 19:50 94 Nasal Cannula 2.00 03/24/17 19:50 98.5 95 16 161/72 94 03/24/17 19:00 87 03/24/17 18:03 89 03/24/17 17:11 87 03/24/17 16:33 95 Nasal Cannula 2.00 03/24/17 16:00 87 03/24/17 15:04 95 Nasal Cannula 2.00 03/24/17 15:04 86 03/24/17 15:04 97.8 91 18 130/65 95 03/24/17 14:00 96 03/24/17 14:00 18 03/24/17 14:00 18 03/24/17 13:00 94 03/24/17 12:00 84 03/24/17 11:00 85 03/24/17 11:00 93 Nasal Cannula 2.00 03/24/17 11:00 98.7 96 20 133/65 93 03/24/17 10:00 96 Discharge Condition: Good Discharge Disposition: Discharge to Discharge Instructions: Continue Physical Therapy Leave incisions open to air Call the office to report any new onset redness, drainage, swelling, fever or chills Pt will f/u in 2 weeks in our out patient clinic Ksenia EDWARDS [facility]/[place] [phone] Any questions or concerns: Call [facility] Heart and Vascular Surgery at [facility] [phone] Ksenia Juarez Mar 27, 2017 09:26
[2017-03-27] MEDS: ENOXAPARIN SODIUM 30 MG/0.3 ML SYRINGE SQ SCH (10:29)
[2017-03-27] MEDS: CETIRIZINE HCL 10 MG TAB PO SCH (10:30)
[2017-03-27] MEDS: METOPROLOL TARTRATE 25 MG TAB PO SCH ×2 (10:30→21:46)
[2017-03-27] MEDS: ASPIRIN 325 MG TAB PO SCH (10:30)
[2017-03-27] MEDS: FAMOTIDINE 20 MG TAB PO SCH ×2 (10:30→21:47)
[2017-03-27] MEDS: DOLUTEGRAVIR SODIUM 50 MG TAB PO SCH (10:31)
[2017-03-27] MEDS: HYDROXYCHLOROQUINE SULFATE 200 MG TAB PO SCH (10:31)
[2017-03-27] MEDS: POTASSIUM CHLORIDE 10 MEQ CONTROLLED RELEASE TAB PO SCH ×3 (10:31→21:56)
[2017-03-27] MEDS: ENALAPRIL MALEATE 2.5 MG TAB PO SCH (21:45)
[2017-03-27] MEDS: GABAPENTIN 300 MG CAP PO SCH (21:45)
[2017-03-27] MEDS: ATORVASTATIN 40 MG TAB PO SCH (21:46)
[2017-03-27] MEDS: valACYclovir HCL 500 MG TAB PO SCH (21:47)
[2017-03-27] MEDS: RILPIVIRINE 25 MG TAB PO SCH (21:51)
[2017-03-28] VITALS (17 sets, daily range): BP systolic 127–138; BP diastolic 52–65; PULSE 70–90; RESP 16–18; TEMP 98–98.6; O2SAT 94–97
[2017-03-28 07:12] LABS: BICARBONATE 23.9 MEQ/L (21.0-32.0); POTASSIUM 3.5 MEQ/L (3.5-5.1)
[2017-03-28] MEDS: ASPIRIN 325 MG TAB PO SCH (08:16)
[2017-03-28] MEDS: DOLUTEGRAVIR SODIUM 50 MG TAB PO SCH (08:17)
[2017-03-28] MEDS: POTASSIUM CHLORIDE 10 MEQ CONTROLLED RELEASE TAB PO SCH (08:17)
[2017-03-28] MEDS: FAMOTIDINE 20 MG TAB PO SCH (08:17)
[2017-03-28] MEDS: CETIRIZINE HCL 10 MG TAB PO SCH (08:17)
[2017-03-28] MEDS: METOPROLOL TARTRATE 25 MG TAB PO SCH (08:17)
[2017-03-28 09:13] LABS: BACTERIA, URINE FEW /hpf; BLOOD, URINE SMALL (NEG); COMMENT (UR) CULTURE INDICATED; CULTURE IF INDICATED CULTURE INDICATED; GLUCOSE,URINE NEG (NEG); KETONE, URINE TRACE mg/dL (NEG); MUCUS URINE FEW /lpf (OCC); NITRITE,URINE NEG (NEG); URINE COLOR YELLOW (YELLW/STRAW)
--- NOTE | 2017-03-28 09:22 | PD.VS.PN ---
Subjective Procedure(s): ABF and bilateral groin reconstructions Subjective/Hospital Course no pain but complained of urinary frequency overnight. No burning. Otherwise tolerating PO and ambulating. Objective Vitals/I&O Date Time Temp Pulse Resp B/P Pulse Ox O2 Delivery O2 Flow Rate FiO2 03/28/17 06:06 81 03/28/17 05:13 87 03/28/17 04:16 88 03/28/17 03:58 95 Room Air 03/28/17 03:57 98.0 79 18 138/52 95 03/28/17 03:05 82 03/28/17 02:05 84 03/28/17 01:00 86 03/28/17 00:00 90 03/27/17 23:43 96 Room Air 03/27/17 23:30 100.5 99 18 131/62 93 03/27/17 23:00 98 03/27/17 21:00 90 03/27/17 20:00 99.0 88 16 147/64 94 03/27/17 20:00 94 Room Air 03/27/17 20:00 96 03/27/17 19:00 94 03/27/17 15:15 79 03/27/17 15:15 96 Room Air 03/27/17 15:15 98.6 79 20 123/62 96 03/27/17 11:30 98 03/27/17 11:30 95 Room Air 03/27/17 11:30 98.3 98 20 123/62 95 03/28/17 03/28/17 03/28/17 06:59 14:59 22:59 Intake Total 240 ml Output Total 150 ml Balance 90 ml Pulses: midline abdominal incision and bilateral groin incision intact both feet warm. Laboratory Laboratory Tests Test 03/28/17 03/28/17 06:06 08:53 Sodium Level 140 Potassium Level 3.5 Chloride Level 106 Carbon Dioxide Level 23.9 Anion Gap 10 Blood Urea Nitrogen 15 Creatinine 0.79 Estimat Glomerular Filtration 98 Rate Random Glucose 97 Calcium Level 8.4 Urine Color YELLOW Urine Turbidity HAZY Urine pH 7.0 Urine Specific [place] 1.017 Urine Protein 30 Urine Glucose (UA) NEG Urine Ketones TRACE Urine Occult Blood SMALL Urine Nitrite NEG Urine Bilirubin NEG Urine Urobilinogen 2.0 Urine Leukocyte Esterase LARGE Urine RBC 5 Urine WBC 81 Urine WBC Clumps FEW Urine Bacteria FEW Urine Mucus FEW Microscopic Urinalysis Comment CULTURE INDICATED Date/Time Procedure Status Source Growth 03/28/17 08:53 Urine Culture Received Urine Clean Catch Pending Assessment and Plan Assessment: (1) Aortoiliac occlusive disease Status: Acute (2) PAD (peripheral artery disease) Status: Acute Plan Patient doing well. Will get UA with urinary frequency. otherwise, look great and set to be discharged later today. Discharge Planning Rehab Dusty Fuller DO Mar 28, 2017 09:21
[2017-03-28 10:12] LABS: AUTOMATED NEUTROPHIL # 9.7 TH/MM3 (1.8-7.7); BASOPHIL # 0.1 TH/MM3 (0-0.2); BASOPHIL % 0.5 % (0.0-2.0); EOSINOPHIL # 0.1 TH/MM3 (0-0.4); HEMO FLAGS DIFF FINAL; LYMPH % 10.2 % (9.0-44.0); LYMPHOCYTE # 1.2 TH/MM3 (1.0-4.8); MEAN CELL VOLUME 94.9 FL (80.0-100.0); MEAN CORPUSCULAR HEMOGLOBIN 32.7 PG (27.0-34.0); MEAN CORPUSCULAR HGB CONC 34.5 % (32.0-36.0); MONO % 8.8 % (0.0-8.0); NEUT % 79.5 % (16.0-70.0); PLATELET COUNT 250 TH/MM3 (150-450); RED BLOOD COUNT 3.48 MIL/MM3 (4.50-5.90); RED CELL DISTRIBUTION WIDTH 13.7 % (11.6-17.2); WHITE BLOOD COUNT 12.2 TH/MM3 (4.0-11.0)
[2017-03-28] MEDS ORDERED: LEVA250T14 PO (10:30)
[2017-03-28] MEDS ORDERED: LEVOFLOXACIN 250 MG TAB PO SCH (11:00)
[2017-03-28] MEDS: ENOXAPARIN SODIUM 30 MG/0.3 ML SYRINGE SQ SCH (12:02)
== END 2017-03-28 15:07 | DRG 272 ==
LOC: HSDI 03-21 05:31 → HCVR 03-21 12:57 → HCIN 03-22 18:36
PROVIDERS: ADMIT Surgery; ATTEND Surgery
PROC: 04CL0ZZ Extirpation of Matter from Left Femoral Artery, Open Approach (ICD-10-PCS; 2017-03-21)
PROC: 04UL0JZ Supplement Left Femoral Artery with Synthetic Substitute, Open Approach (ICD-10-PCS; 2017-03-21)
PROC: 041L0JJ Bypass Left Femoral Artery to Left Femoral Artery with Synthetic Substitute, Open Approach (ICD-10-PCS; 2017-03-21)
PROC: 04PY0JZ Removal of Synthetic Substitute from Lower Artery, Open Approach (ICD-10-PCS; 2017-03-21)
PROC: 04100JK Bypass Abdominal Aorta to Bilateral Femoral Arteries with Synthetic Substitute, Open Approach (ICD-10-PCS; principal; 2017-03-21 07:34)
DX: I70.222 Atherosclerosis of native arteries of extremities with rest pain, left leg (principal); I10 Essential (primary) hypertension; E78.5 Hyperlipidemia, unspecified; I70.722 Atherosclerosis of other type of bypass graft(s) of the extremities with rest pain, left leg; E86.9 Volume depletion, unspecified; G89.18 Other acute postprocedural pain; Z21 Asymptomatic human immunodeficiency virus [HIV] infection status; M19.90 Unspecified osteoarthritis, unspecified site; Z79.82 Long term (current) use of aspirin; Z87.891 Personal history of nicotine dependence
CPT/HCPCS: 36430; 80048; 81001; 85025; 85027; 86850; 86900; 86901; 86920; 87077; 87086; 87186; C1768; J0360; J1644; J1650; J2270; J2405; J2720; J3010; J3370; J7120; P9016

== ENCOUNTER → 2017-03-18 | Outpatient (CLI) | payer MEDICARE ==
[~2017-03-18] MED LIST: ACTO15TA6 PO; ALEV220T14 PO; ASPI81 PO; ASPI81TA11 PO; CALC-197 PO; CETI10CA3 PO; CHOL1CAP34 PO; CLOP75 PO; DOLU1TAB PO; ENAL2.5 PO; ENAL2.5T PO; EPZITAB4 PO; GABA600T PO; GLUC500C5 PO; GLUC750T22 PO; HYDR200T3 PO; IRONTAB4 PO; LACTCAP8 PO; LAMI1TAB8 PO; LEVA250T14 PO; LORT5TAB PO; NAPR220T95 PO; OMEG100010 PO; OMEG1CAP53 PO; OXYC1TAB63 PO; REYA150C4 PO; RILP25 PO; RITO100 PO; ROSU1TAB4 PO; ROSU5 PO; SAW500CA6 PO; TAB-TAB PO; THERTAB17 PO; TRIL135C PO; VALA1TAB PO
[2017-03-18 11:16] LABS: BLOOD, URINE NEG (NEG); GLUCOSE,URINE NEG (NEG); KETONE, URINE NEG (NEG); NITRITE,URINE NEG (NEG); PH, URINE 5.5 (5.0-8.5); URINE COLOR LIGHT-YELLOW (YELLW/STRAW)
[2017-03-18 11:18] LABS: COMMENT (UR) CULT NOT INDICATED; CULTURE IF INDICATED CULT NOT INDICATED
[2017-03-18 11:22] LABS: AUTOMATED NEUTROPHIL # 2.5 TH/MM3 (1.8-7.7); BASOPHIL % 0.6 % (0.0-2.0); EOSINOPHIL # 0.4 TH/MM3 (0-0.4); EOSINOPHIL % 7.4 % (0.0-4.0); HEMATOCRIT 41.9 % (39.0-51.0); HEMO FLAGS DIFF FINAL; LYMPH % 32.4 % (9.0-44.0); LYMPHOCYTE # 1.8 TH/MM3 (1.0-4.8); MEAN CELL VOLUME 98.3 FL (80.0-100.0); MEAN CORPUSCULAR HEMOGLOBIN 32.6 PG (27.0-34.0); MEAN CORPUSCULAR HGB CONC 33.1 % (32.0-36.0); NEUT % 43.6 % (16.0-70.0); PLATELET COUNT 186 TH/MM3 (150-450); RED BLOOD COUNT 4.26 MIL/MM3 (4.50-5.90); RED CELL DISTRIBUTION WIDTH 13.4 % (11.6-17.2); WHITE BLOOD COUNT 5.6 TH/MM3 (4.0-11.0)
[2017-03-18 11:33] LABS: PROTHROMBIN TIME - PATIENT 10.6 SEC (9.8-11.6)
[2017-03-18 11:40] LABS: BICARBONATE 28.2 MEQ/L (21.0-32.0); POTASSIUM 4.5 MEQ/L (3.5-5.1)
--- NOTE | 2017-03-18 12:52 | RADRPT ---
EXAM DATE/TIME: 03/18/2017 12:16 [place] COMPARISON: No previous studies available for comparison. INDICATIONS : Evaluate for pneumonia,pneumothorax and communicable diseases. Pre-op femoral bypass MEDICAL HISTORY : None. SURGICAL HISTORY : None. ENCOUNTER: Initial ACUITY: 1 day PAIN SCORE: 0/10 LOCATION: chest FINDINGS: The lungs are clear without infiltrate, nodule, or mass. There is no appreciable pleural effusion fo r technique. Heart and mediastinum are unremarkable. CONCLUSION: No acute cardiopulmonary disease. Kelly Dickerson MD on March 18, 2017 at 12:50 Board Certified Radiologist. This report was verified electronically.
--- NOTE | 2017-03-19 10:14 | EKG ---
Date Performed: 03/18/2017 Time Performed: 11:00:26 PTAGE: 66 years EKG: Normal Sinus rhythm Nonspecific ST abnormality PREVIOUS TRACING 08/17/2009 No change from the prior tracing. DOCTOR: Jaren Page Interpretating Date/Time 03/19/2017 10:12:15
== END ==
LOC: CPRE 10:32
PROVIDERS: ATTEND Surgery
DX: Z01.812 Encounter for preprocedural laboratory examination (principal); Z01.810 Encounter for preprocedural cardiovascular examination; I73.9 Peripheral vascular disease, unspecified
CPT/HCPCS: 36415; 71020; 80048; 81001; 85025; 85610; 85730; 93005

== ENCOUNTER → 2017-10-23 | Outpatient (CLI) | payer MEDICARE ==
[~2017-10-23] MED LIST changes: -ACTO15TA6 PO; +ANTI2CAP PO; -ASPI81 PO; -ASPI81TA11 PO; +ASPI81TA23 PO; -CALC-197 PO; -CLOP75 PO; -ENAL2.5 PO; -EPZITAB4 PO; -GLUC750T22 PO; -IRONTAB4 PO; -LORT5TAB PO; -NAPR220T95 PO; -OMEG1CAP53 PO; -REYA150C4 PO; -RITO100 PO; -ROSU5 PO; -SAW500CA6 PO; -TAB-TAB PO; -TRIL135C PO
[2017-10-23 11:39] LABS: AUTOMATED NEUTROPHIL # 4.8 TH/MM3 (1.8-7.7); BASOPHIL % 0.5 % (0.0-2.0); EOSINOPHIL # 0.2 TH/MM3 (0-0.4); EOSINOPHIL % 2.8 % (0.0-4.0); HEMATOCRIT 41.2 % (39.0-51.0); HEMOGLOBIN 14.3 GM/DL (13.0-17.0); LYMPH % 22.3 % (9.0-44.0); LYMPHOCYTE # 1.7 TH/MM3 (1.0-4.8); MEAN CELL VOLUME 97.3 FL (80.0-100.0); MEAN CORPUSCULAR HEMOGLOBIN 33.7 PG (27.0-34.0); MEAN CORPUSCULAR HGB CONC 34.7 % (32.0-36.0); MEAN PLATELET VOLUME 8.5 FL (7.0-11.0); MONO % 12.6 % (0.0-8.0); NEUT % 61.8 % (16.0-70.0); PLATELET COUNT 244 TH/MM3 (150-450); RED BLOOD COUNT 4.23 MIL/MM3 (4.50-5.90); RED CELL DISTRIBUTION WIDTH 14.4 % (11.6-17.2); WHITE BLOOD COUNT 7.7 TH/MM3 (4.0-11.0)
[2017-10-23 11:44] LABS: BILIRUBIN, URINE NEG (NEG); BLOOD, URINE NEG (NEG); GLUCOSE,URINE NEG (NEG); KETONE, URINE NEG (NEG); NITRITE,URINE NEG (NEG); PH, URINE 5.5 (5.0-8.5); URINE COLOR YELLOW (YELLW/STRAW); URINE LEUKOCYTE ESTERASE NEG (NEG)
[2017-10-23 11:48] LABS: INTERNATIONAL NORMALIZED RATIO 1.1 RATIO; PROTHROMBIN TIME - PATIENT 10.7 SEC (9.8-11.6)
--- NOTE | 2017-10-23 12:05 | RADRPT ---
EXAM DATE/TIME: 10/23/2017 11:49 [facility] COMPARISON: CHEST PA & LAT, March 18, 2017, 12:16. INDICATIONS : Evaluate for pneumonia, pneumothorax, and communicable diseases. Pre-op right hip surgery. Patient st ates no chest complaints. MEDICAL HISTORY : None. SURGICAL HISTORY : Femoral Bypass. ENCOUNTER: Initial ACUITY: 1 day PAIN SCORE: 0/10 LOCATION: Bilateral chest FINDINGS: PA and lateral views of the chest demonstrate a normal-sized cardiac silhouette. There is no effusion , consolidation, or pneumothorax. The bones and soft tissues demonstrate no acute abnormality. CONCLUSION: No acute cardiopulmonary abnormality is identified. Davidson Hagen MD on October 23, 2017 at 12:03 Board Certified Radiologist. This report was verified electronically.
[2017-10-23 12:06] LABS: ALBUMIN 3.9 GM/DL (3.4-5.0); ALT (GPT) 66 U/L (12-78); AST (GOT) 53 U/L (15-37); BICARBONATE 28.8 MEQ/L (21.0-32.0); BLOOD UREA NITROGEN 16 MG/DL (7-18); CALCIUM 9.3 MG/DL (8.5-10.1); CHLORIDE 102 MEQ/L (98-107); CREATININE 1.02 MG/DL (0.60-1.30); GLOMERULAR FILTRATION RATE 73 ML/MIN (>89); GLUCOSE,FASTING 97 MG/DL (74-99); SODIUM (NA) 136 MEQ/L (136-145)
[2017-10-23 12:08] LABS: ALKALINE PHOSPHATASE 104 U/L (45-117); TOTAL BILIRUBIN ADULT 0.6 MG/DL (0.2-1.0); TOTAL PROTEIN 8.5 GM/DL (6.4-8.2)
[2017-10-23 12:12] LABS: WESTERGREN SEDIMENTATION RATE 19 mm/hr (0-20)
--- NOTE | 2017-10-24 14:50 | EKG ---
Date Performed: 10/23/2017 Time Performed: 11:08:37 PTAGE: 66 years EKG: Sinus rhythm MODERATE ST DEPRESSION ABNORMAL ECG PREVIOUS TRACING : 03/18/2017 11.00 Since the prior tracing, there has been no significant ocasio DOCTOR: Juaquin May Interpretating Date/Time 10/24/2017 14:42:41
== END ==
LOC: CPRE 10:43
PROVIDERS: ATTEND Orthopaedic Surgery
DX: Z01.812 Encounter for preprocedural laboratory examination (principal); Z01.811 Encounter for preprocedural respiratory examination; Z01.810 Encounter for preprocedural cardiovascular examination; M16.11 Unilateral primary osteoarthritis, right hip; M79.609 Pain in unspecified limb; Z96.60 Presence of unspecified orthopedic joint implant; R94.31 Abnormal electrocardiogram [ECG] [EKG]
CPT/HCPCS: 36415; 71046; 80053; 81001; 85025; 85610; 85652; 85730; 93005

== ENCOUNTER 2017-11-13 06:52 | Inpatient (IN) | payer MEDICARE ==
[~2017-11-13] VITALS: Ht 180.3 cm; Wt 72.0 kg
[~2017-11-13 06:52] MED LIST changes: -ALEV220T14 PO; -CETI10CA3 PO; -GLUC500C5 PO; -LACTCAP8 PO; -LEVA250T14 PO; -OXYC1TAB63 PO
[2017-11-13] MEDS ORDERED: METOPROLOL TARTRATE 25 MG TAB PO PRN (07:15)
[2017-11-13] MEDS ORDERED: POVIDONE IODINE 5% (ANTISEPSIS KIT) 4 APPLICATIONS EACH NARE PRN (07:15)
[2017-11-13] MEDS ORDERED: POVIDONE IODINE 7.5% SCRUB 118 ML BOTTLE TOPICAL SCH (07:15)
[2017-11-13] MEDS ORDERED: CHLORHEXIDINE GLUCONATE 2 % 1 PACK (2 CLOTHS) TOPICAL PRN (07:15)
[2017-11-13] MEDS ORDERED: VANCOMYCIN 1000 MG/NS 250 ML (for <70 kg) IV SCH ×2 (07:15)
[2017-11-13] MEDS ORDERED: LACTATED RINGER'S 1000 ML IV PRN (07:15)
[2017-11-13] MEDS ORDERED: CHLORHEXIDINE GLUCONATE 4% SOLN 120 ML BTL TOPICAL SCH (07:15)
[2017-11-13] MEDS ORDERED: SODIUM CHLORID 0.9% 500 ML IV PRN (07:15)
[2017-11-13] MEDS ORDERED: DEXAMETHASONE SOD PHOS 20 MG/5 ML VIAL IV ONE (07:30)
[2017-11-13] MEDS ORDERED: ceFAZolin 2 GM PREMIX 50 ML IV SCH (08:45)
[2017-11-13] MEDS ORDERED: GENTAMICIN SULFATE 80 MG/2 ML VIAL ONE (08:49)
[2017-11-13] MEDS ORDERED: MIDAZOLAM HCL 2 MG/2 ML VIAL ONE (08:50)
[2017-11-13] MEDS ORDERED: FAMOTIDINE 20 MG/2 ML VIAL ONE (08:50)
[2017-11-13] MEDS ORDERED: ACETAMINOPHEN 1000 MG/100 ML 100 ML IV ONE (08:50)
[2017-11-13] MEDS ORDERED: PROPOFOL 500 MG/50 ML INJ 50 ML ONE (09:15)
[2017-11-13] MEDS ORDERED: TRANEXAMIC ACID INJ 720 MG in SODIUM CHLORIDE 0.9% INJ 100 ML IV SCH ×2 (10:00→13:00)
[2017-11-13] MEDS ORDERED: EXPAREL PERI-ARTICULAR INJECTION (TOTAL VOL. 60 ML) P-ARTICULR SCH ×2 (10:00)
--- NOTE | 2017-11-13 11:55 | RADRPT ---
EXAM DATE/TIME: 11/13/2017 10:25 [facility] COMPARISON: FLUOROSCOPY PORTABLE UP TO 1HR, November 13, 2017, 0:00. INDICATIONS : Right hip pain, anterior hip replacement done in operating room. MEDICAL HISTORY : None. SURGICAL HISTORY : None. ENCOUNTER: Initial ACUITY: 1 day PAIN SCORE: Non-responsive. LOCATION: Right hip. FINDINGS: The patient is post right hip arthroplasty. Orthopedic hardware is in excellent position. The alignme nt is good. CONCLUSION: 1. Uncomplicated right hip arthroplasty. Teja Arizmendi MD on November 13, 2017 at 11:53 Board Certified Radiologist. This report was verified electronically.
[2017-11-13] MEDS: SODIUM CHLOR 0.9% 1000 ML INJ 1,000 ML IV SCH (12:00)
[2017-11-13] MEDS ORDERED: BISACODYL 10 MG SUPP RECTAL PRN (12:00)
[2017-11-13] MEDS ORDERED: MAGNESIUM HYDROXIDE SUSP 30 ML CUP PO PRN (12:00)
[2017-11-13] MEDS ORDERED: diphenhydrAMINE HCL 50 MG/ML VIAL IV PUSH PRN (12:00)
[2017-11-13] MEDS ORDERED: ALUMINUM/MAGNESIUM/SIMETH 30 ML CUP PO PRN (12:00)
[2017-11-13] MEDS ORDERED: Post-op Orders (for Pharmacy) XX ONE (12:00)
[2017-11-13] MEDS ORDERED: NALOXONE HCL 0.4 MG/ML AMP IV PUSH PRN (12:00)
[2017-11-13] MEDS ORDERED: ZOLPIDEM TARTRATE 5 MG TAB PO PRN (12:00)
[2017-11-13] MEDS ORDERED: ACETAMINOPHEN/HYDROcodone 325 MG/5 MG TAB PO PRN (12:00)
[2017-11-13] MEDS ORDERED: PROPOFOL 200 MG/20 ML AMP IV ONE (12:00)
[2017-11-13] MEDS ORDERED: ePHEDrine/NS 25 MG/5 ML SYRINGE IV ONE (12:00)
[2017-11-13] MEDS ORDERED: ONDANSETRON HCL 4 MG/2 ML VIAL IVP PRN (12:00)
[2017-11-13] MEDS ORDERED: LACTATED RINGER'S 1000 ML INJ 1,000 ML IV ONE (12:00)
--- NOTE | 2017-11-13 12:02 | PD.OP ---
cc: Duc Jackson MD Operative Report Date of Surgery: Nov 13, 2017 Preoperative Diagnosis: Right hip severe osteoarthritis Postoperative Diagnosis: Same Procedure: Right total hip arthroplasty Anesthesia: Spinal Surgeon: Duc Jackson Police Inspector(s): JERRY Taylor The surgical procedure was assisted by my Advanced Registered Nurse Practitioner. My FREIGHT CLERK presence was necessary throughout this case for the manipulation and positioning of the surgical extremity. My FREIGHT CLERK was assisting me throughout the duration of this procedure. The skill set of an Advance Registered Nurse Practitioner was medically necessary to complete this procedure. During the surgical case, the surgical supplies sterilizer was working at the back table and the Advance Registered Nurse Practitioner was directly assisting me. Operation and Findings: IMPLANT DESCRIPTION: 1. [place] Gription Cup, acetabular size 52. 2. [place] AltrX polyethylene, neutral. 4. [place] femoral stem size 14, no collar, standard offset. 5. Femoral head/neck metal, 36, +1.5. ESTIMATED BLOOD LOSS: 200 cc. JUSTIFICATION FOR PROCEDURE: The patient has end-stage osteoarthritis to the hip. There is an attached conservative measures pathway form in the chart that describes the nonoperative measures that were undertaken prior to consideration of surgical management. The patient understood the risks and benefits of surgical management. See my office notes for further details. PROCEDURE: The patient was brought back to the operative theatre. Adequate anesthesia was obtained. The patient received intravenous and vancomycin and Ancef. Note that the patient had a test dose of Ancef prior to full administration and was monitored by anesthesia. The patient was carefully placed on the operative table. The lower extremity was prepped and draped in the usual sterile fashion. Fluoroscopic images were obtained. We made a standard anterior incision over the hip. We dissected through the TFL fascia, exposing the anterior capsule. Arthrotomy was performed in a T-shaped fashion. The capsule was tagged with a #2 FiberWire. End-stage arthritis was identified. Osteotomy was performed through the femoral neck exposing the acetabulum. Remnants of the labrum were resected and osteophytes were removed. We sequentially reamed the acetabulum. We trialed the hip and placed the final cup into position. This was done under fluoroscopic guidance to obtain the appropriate inclination and anteversion. A manhole cover was placed into the acetabular component. We then placed the final polyethylene into position and confirmed that it was well seated. Capsular attachments on the calcar and the inner aspect of the greater trochanter were resected. On the proximal aspect of the femur we used a rongeur , box osteotome, canal finder, sequential broaches and lateralizing rasp. We calcar planed the proximal femur. Then thoroughly irrigated the wound. We trialed the hip with the appropriate size stem. We placed the final stem in to position and trialed again. The hip was stable while it was externally rotated 70 degrees when the leg was lowered to the floor. The final head was applied, and final fluoroscopic images were obtained. The wound was thoroughly irrigated again. Interarticular injection of liposomal bupivacaine was given. The capsule was closed with #2 FiberWire and #1 Vicryl. The deep fascia was closed with a #2 Stratafix, followed by 2-0 Vicryl in the skin and Dermabond dressing. Postop plan is to weight-bear as tolerated. DVT prophylaxis will be performed with SCDonofre, CARLYLE alvarado, early mobilization, and Lovenox followed by aspirin. Duc Jackson MD Nov 13, 2017 12:02
[2017-11-13] MEDS ORDERED: DO NOT ADM ANY ANTICOAGULANT DRUGS PRN (12:17)
[2017-11-13] MEDS ORDERED: MORPHINE SULFATE 2 MG/ML INJ IV PUSH PRN (12:30)
[2017-11-13] MEDS: HYDROXYCHLOROQUINE SULFATE 200 MG TAB PO SCH (12:45)
--- NOTE | 2017-11-13 13:15 | RADRPT ---
EXAM DATE/TIME: 11/13/2017 12:43 [facility] COMPARISON: No previous studies available for comparison. INDICATIONS : Post op right hip arthroplasty. MEDICAL HISTORY : None. SURGICAL HISTORY : None. ENCOUNTER: Initial ACUITY: 1 day PAIN SCORE: 0/10 LOCATION: Right hip FINDINGS: The patient is status post a total hip arthroplasty with a bipolar prosthesis. Prosthesis is well-sea luis. Alignment is anatomic. A fracture is not appreciated. CONCLUSION: Anatomic alignment. Hernan Arizmendi MD FACR on November 13, 2017 at 13:13 Board Certified Radiologist. This report was verified electronically.
--- NOTE | 2017-11-13 13:31 | PD.CONS ---
[facility] By [facility] Reason for Consult medical management Primary Care Physician Teja Mata MD Diagnoses: History of Present Illness Pleasant 67 yo male, with pmh of OA, HIV positive on AVITIA therapy compliant with meds follows with ID as OP. The patient came to same day surgery for surgical intervention right hip replacement, The patient is seen is PACU s/p R hip surgery Patient appears in nad. Says he has no pain at this time . No n/v/d/c. No fever or chills No cp, sob. Review of Systems ROS Limitations: Clinical Condition Except as stated in HPI: all other systems reviewed are Neg Past Family Social History Allergies: Coded Allergies: amoxicillin (Unverified Allergy, Severe, blisters, 11/13/17) clavulanic acid (Unverified Allergy, Severe, blisters, 11/13/17) doxycycline (Unverified Allergy, Severe, blisters, 11/13/17) levofloxacin (Verified Allergy, Severe, TENDONITIS, 11/13/17) mupirocin (Verified Allergy, Severe, MOUTH BLISTERS, 11/13/17) sulfamethoxazole (Unverified Allergy, Severe, blisters, 11/13/17) trimethoprim (Unverified Allergy, Severe, blisters, 11/13/17) lactose (Unverified Adverse Reaction, Severe, GI UPSET, 11/13/17) Past Medical History OA HIV positive Past Surgical History bilat fem artery stent skin CA removed pylonidl cyst removed x 2 times CEA right Right inguinal hernia repair Reported Medications Reported Meds & Active Scripts Active Reported Thera-M (Multiple Vitamins W/ Minerals) 1 Tab 1 Tab PO DAILY [place] 3 1000 mg ([place]-3 Fatty Acids) 300 Mg-1,000 Mg Cap 1 Cap PO DAILY Anti-Diarrheal (Loperamide HCl) 2 Mg Cap 2 Mg PO DIRECTED One capsule after each loose stool. Not to exceed 8 capsules per day. Vitamin D3 (Cholecalciferol) 50,000 Unit Cap 50,000 Units PO EVERY OTHER WEEK Valacyclovir (Valacyclovir HCl) 1 Gm Tab 1,000 Mg PO HS Tivicay (Dolutegravir Sodium) 50 Mg Tab 50 Mg PO DAILY TAKES AT NIGHT Rosuvastatin (Rosuvastatin Calcium) 5 Mg Tab 5 Mg PO MOWEFR Lamivudine 300 Mg Tab 300 Mg PO HS TAKES AT NIGHT Hydroxychloroquine (Hydroxychloroquine Sulfate) 200 Mg Tab 200 Mg PO MOWEFR Gabapentin 600 Mg Tab 600 Mg PO HS Enalapril (Enalapril Maleate) 2.5 Mg Tab 2.5 Mg PO HS Edurant (Rilpivirine) 25 Mg Tab 25 Mg PO HS TAKES AT NIGHT Aspirin EC (Aspirin) 81 Mg Tabdr 81 Mg PO MOWEFR Family History father brain ca, stroke Mother heart condition, paseed away in an MVA Brother DM, heart problems Social History Quit tobacco use 1 years ago. used to smoke 1 PPD for 45 years EtOH use 2oz daily, last drink on Saturday Denies illicit drug use Physical Exam Vital Signs Vital Signs Date Time Temp Pulse Resp B/P (MAP) Pulse Ox O2 Delivery O2 Flow Rate FiO2 11/13/17 12:30 72 15 136/63 (87) 100 Nasal Cannula 2 11/13/17 12:19 97.1 73 20 107/53 (71) 100 Nasal Cannula 2 11/13/17 07:30 98.1 93 18 121/78 (92) 98 Physical Exam GENERAL: This is a well-nourished, well-developed patient, in no apparent distress. SKIN: No rashes, ecchymoses or lesions. Cool and dry. HEAD: Atraumatic. Normocephalic. No temporal or scalp tenderness. EYES: Pupils equal round and reactive. Extraocular motions intact. No scleral icterus. No injection or drainage. ENT: Nose without bleeding, purulent drainage or septal hematoma. Throat without erythema, tonsillar hypertrophy or exudate. Uvula midline. Airway patent. NECK: Trachea midline. No JVD or lymphadenopathy. Supple, nontender, no meningeal signs. CARDIOVASCULAR: Regular rate and rhythm without murmurs, gallops, or rubs. RESPIRATORY: Clear to auscultation. Breath sounds equal bilaterally. No wheezes , rales, or rhonchi. GASTROINTESTINAL: Abdomen soft, non-tender, nondistended. No hepato-splenomegaly , or palpable masses. No guarding. MUSCULOSKELETAL: Right hip s/p surgery dressing on c/d/i. Extremities without clubbing, cyanosis, or edema. No joint tenderness, effusion, or edema noted. No calf tenderness. Negative Homans sign bilaterally. NEUROLOGICAL: Awake and alert. Cranial nerves II through XII intact. Motor and sensory grossly within normal limits. Five out of 5 muscle strength in all muscle groups. Normal speech. Imaging Last Impressions Hip and Pelvis X-Ray 11/13/17 1158 Signed Impressions: Service Date/Time: Monday, November 13, 2017 12:43 - CONCLUSION: Anatomic alignment. Hernan Arizmendi MD FACR Hip X-Ray 11/13/17 0000 Signed Impressions: Service Date/Time: Monday, November 13, 2017 10:25 - CONCLUSION: 1. Uncomplicated right hip arthroplasty. Teja Arizmendi MD Assessment and Plan Assessment and Plan Right hip severe osteoarthritis S/p Right total hip arthroplasty by Dr Jackson Management per surgeon HIV positive Restart home meds Patient is compliant with taking his meds and with follow up appointments HTN resume home meds BP stable at this time.mOnito and adjust meds as need HLD restart home meds DVT ppx scd/teds/ chemo ppx per surgeon Thank you for this confutation Lluvia James MD Nov 13, 2017 13:31
[2017-11-13] MEDS: ATORVASTATIN 10 MG TAB PO SCH (14:56)
[2017-11-13] MEDS ORDERED: *morphine SULFATE 10 MG/ML PERIprocedure ONLY ONE (15:22)
[2017-11-13 17:00] VITALS: BP 148/69; PULSE 102; RESP 17; TEMP 95.7; O2SAT 97
--- NOTE | 2017-11-13 17:04 | HHI.FF ---
Face to Face Verification Diagnosis: (1) Osteoarthritis of right hip (2) Status post total hip replacement, right Physical Therapy Gait training, Transfer training, bed to chair Hip: Total hip Right LE Weight Bearing: WB as tolerated Right LE Range of Motion: Active ROM Nursing Nursing: Edvin hastings Dressing Changes: Do not change dressing Additional Instructions First dressing change in the office I have seen patient Montez Olivera on 11/13/17. My clinical findings support the need for the requested home health care services because: Limited ability to care for self High risk of falls I certify that my clinical findings support that this patient is homebound because: Post-op weakness Unsteady gait/balance Teja Worthy Nov 13, 2017 17:04
--- NOTE | 2017-11-13 17:04 | HHI.DCPOC ---
Discharge Care Plan Diagnosis: (1) Osteoarthritis of right hip (2) Status post total hip replacement, right Your Health Problems Are: Difficulty with ADL Goals to Promote Your Health * To prevent worsening of your condition and complications * To maintain your health at the optimal level Directions to Meet Your Goals Take your medications as prescribed Follow your dietary instruction Follow activity as directed Keep your appointments as scheduled Take your immunizations and boosters as scheduled If your symptoms worsen call your PCP, if no PCP go to Urgent Care Center or Emergency Room Smoking is Dangerous to Your Health. Avoid second hand smoke Call the 24-hour hour crisis hotline for domestic abuse at Teja Worthy Nov 13, 2017 17:03
[2017-11-13] MEDS ORDERED: COMMODE 3-IN-11 MIS (17:06)
[2017-11-13] MEDS ORDERED: WALKER WHEELS/F1 MIS (17:06)
[2017-11-13] MEDS: ACETAMINOPHEN/HYDROcodone 325 MG/5 MG TAB PO PRN ×2 (17:11→21:19)
[2017-11-13 19:16] VITALS: BP 147/69; PULSE 74; RESP 18; TEMP 96.9; O2SAT 98
[2017-11-13] MEDS: ENALAPRIL MALEATE 2.5 MG TAB PO SCH (21:00)
[2017-11-13] MEDS: RILPIVIRINE 25 MG TAB PO SCH (21:00)
[2017-11-13] MEDS: GABAPENTIN 300 MG CAP PO SCH (21:00)
[2017-11-13] MEDS: valACYclovir HCL 500 MG TAB PO SCH (21:00)
[2017-11-13 23:24] VITALS: BP 124/60; PULSE 72; RESP 17; TEMP 96.7; O2SAT 97
[2017-11-14] MEDS: SODIUM CHLOR 0.9% 1000 ML INJ 1,000 ML IV SCH ×3 (01:23→18:00)
[2017-11-14 04:45] VITALS: BP 119/57; PULSE 89; RESP 18; TEMP 97.4; O2SAT 97
[2017-11-14] MEDS: DOLUTEGRAVIR SODIUM 50 MG TAB PO SCH ×2 (07:51→20:46)
[2017-11-14 07:56] VITALS: BP 119/60; PULSE 74; RESP 18; TEMP 96.6; O2SAT 97
[2017-11-14 08:16] LABS: HEMATOCRIT 34.9 % (39.0-51.0); MEAN CELL VOLUME 99.3 FL (80.0-100.0); MEAN CORPUSCULAR HEMOGLOBIN 34.3 PG (27.0-34.0); MEAN CORPUSCULAR HGB CONC 34.5 % (32.0-36.0); MEAN PLATELET VOLUME 8.9 FL (7.0-11.0); PLATELET COUNT 184 TH/MM3 (150-450); RED BLOOD COUNT 3.52 MIL/MM3 (4.50-5.90); RED CELL DISTRIBUTION WIDTH 13.5 % (11.6-17.2); WHITE BLOOD COUNT 12.8 TH/MM3 (4.0-11.0)
[2017-11-14] MEDS: ENOXAPARIN SODIUM 40 MG/0.4 ML SYRINGE SQ SCH (11:39)
[2017-11-14 12:00] VITALS: BP 118/72; PULSE 73; RESP 18; TEMP 97.2; O2SAT 97
--- NOTE | 2017-11-14 12:44 | PD.ORT.PN ---
Subjective Post Op Day #: 1 Subjective Remarks Patient is OOB in chair eating lunch. Patient reports minimal pain to the right hip. Patient reports deciding to go to a SNF for a few days to get back on his feet. Objective Vitals Vital Signs Date Time Temp Pulse Resp B/P (MAP) Pulse Ox O2 Delivery O2 Flow Rate FiO2 11/14/17 11:05 18 11/14/17 07:56 96.6 74 18 119/60 (79) 97 11/14/17 04:45 97.4 89 18 119/57 (77) 97 11/13/17 23:24 96.7 72 17 124/60 (81) 97 11/13/17 19:16 96.9 74 18 147/69 (95) 98 11/13/17 18:11 18 11/13/17 17:00 95.7 102 17 148/69 (95) 97 11/13/17 16:00 97.8 107 23 130/87 (101) 97 Room Air 11/13/17 15:00 93 19 170/79 (109) 98 Room Air 11/13/17 14:00 93 19 161/75 (103) 97 Room Air 11/13/17 13:30 80 17 139/63 (88) 98 Room Air 11/13/17 13:00 70 22 139/63 (88) 100 Nasal Cannula 2 11/13/17 12:45 70 17 138/62 (87) 100 Nasal Cannula 2 I/O 11/13/17 11/13/17 11/13/17 11/14/17 11/14/17 11/14/17 07:00 15:00 23:00 07:00 15:00 23:00 Intake Total 1200 ml 360 ml 480 ml Output Total 900 ml 1200 ml 400 ml Balance 300 ml -840 ml 80 ml Intake Oral 360 ml 480 ml IV Total 1200 ml Output Urine Total 700 ml 1200 ml 400 ml Estimated Blood Loss 200 ml # Voids 2 2 # Bowel Movements 0 0 Result Diagram: 11/14/17 0700 Procedures Right JAY Objective Remarks Dressing is C/D/I. EHL/EHL/TA. 2+ pedal pulse. Calf is soft and nontender. + SILT. Assessment & Plan Ortho Post Op Day #: 1 Problem List: Assessment and Plan POD #1: Right JAY 1. WBAT RLE 2. Lovenox followed by ASA for DVT prophylaxis 3. Ice to the right hip PRN 4. Stable for discharge to SNF, likely Saturday. 5. F/U in the office with Dr. Jackson or JERRY Gunter as previously scheduled. Teja Worthy Nov 14, 2017 12:44
[2017-11-14] MEDS: ACETAMINOPHEN/HYDROcodone 325 MG/5 MG TAB PO PRN ×2 (14:15→19:11)
--- NOTE | 2017-11-14 14:38 | HHI.PR ---
Subjective Remarks Patient is status post right total hip arthroplasty. Currently doing well. No acute concerns. No fever or chills. Pain is well controlled. Objective Vitals Vital Signs Date Time Temp Pulse Resp B/P (MAP) Pulse Ox O2 Delivery O2 Flow Rate FiO2 11/14/17 11:05 18 11/14/17 07:56 96.6 74 18 119/60 (79) 97 11/14/17 04:45 97.4 89 18 119/57 (77) 97 11/13/17 23:24 96.7 72 17 124/60 (81) 97 11/13/17 19:16 96.9 74 18 147/69 (95) 98 11/13/17 18:11 18 11/13/17 17:00 95.7 102 17 148/69 (95) 97 11/13/17 16:00 97.8 107 23 130/87 (101) 97 Room Air 11/13/17 15:00 93 19 170/79 (109) 98 Room Air I/O 11/13/17 11/13/17 11/13/17 11/14/17 11/14/17 11/14/17 07:00 15:00 23:00 07:00 15:00 23:00 Intake Total 1200 ml 360 ml 480 ml Output Total 900 ml 1200 ml 400 ml Balance 300 ml -840 ml 80 ml Intake Oral 360 ml 480 ml IV Total 1200 ml Output Urine Total 700 ml 1200 ml 400 ml Estimated Blood Loss 200 ml # Voids 2 2 # Bowel Movements 0 0 Result Diagram: 11/14/17 0700 Imaging Last Impressions Hip and Pelvis X-Ray 11/13/17 1158 Signed Impressions: Service Date/Time: Monday, November 13, 2017 12:43 - CONCLUSION: Anatomic alignment. Hernan Arizmendi MD FACR Hip X-Ray 11/13/17 0000 Signed Impressions: Service Date/Time: Monday, November 13, 2017 10:25 - CONCLUSION: 1. Uncomplicated right hip arthroplasty. Teja Arizmendi MD Objective Remarks GENERAL: Alert, oriented 3, NAD. SKIN: Warm and dry. HEAD: Normocephalic. EYES: No scleral icterus. No injection or drainage. NECK: Supple, trachea midline. No JVD or lymphadenopathy. CARDIOVASCULAR: Regular rate and rhythm without murmurs, gallops, or rubs. RESPIRATORY: Breath sounds equal bilaterally. No accessory muscle use. GASTROINTESTINAL: Abdomen soft, non-tender, nondistended. MUSCULOSKELETAL: No cyanosis, or edema. Status post right JAY BACK: Nontender without obvious deformity. No CVA tenderness. Procedures 11/13/2017 Right total hip arthroplasty A/P Assessment and Plan Mr. Olivera is a pleasant 67-year-old male with a history of end-stage osteoarthritis to the hip who underwent right total hip arthroplasty on 2017. Hospitalist service was consulted for medical management. Right hip osteoarthritis Status post right JAY Continue [place], morphine as needed for pain bowel regimen. Lovenox 40 mg every 24 hours HIV Hypertension Hyperlipidemia Continue Dolutegravir, Lamivudine, Rilpivirine. Also on Valtrex. Continue Enalapril 2.5mg QHS, Lipitor 10mg MWF. Full code. Lovenox. Josue Junior DO Nov 14, 2017 14:38
[2017-11-14 16:00] VITALS: BP 110/67; PULSE 75; RESP 17; TEMP 97.2; O2SAT 97
[2017-11-14] MEDS ORDERED: DEXAMETHASONE SOD PHOS 20 MG/5 ML VIAL IV ONE (20:00)
[2017-11-14 20:35] VITALS: BP 142/67; PULSE 77; RESP 17; TEMP 97.4; O2SAT 94
[2017-11-14] MEDS: ENALAPRIL MALEATE 2.5 MG TAB PO SCH (20:44)
[2017-11-14] MEDS: MULTIVITAMINS/MINERALS THERAPEUTIC TAB PO SCH (20:44)
[2017-11-14] MEDS: GABAPENTIN 300 MG CAP PO SCH (20:44)
[2017-11-14] MEDS: DOCUSATE SODIUM 100 MG CAP PO SCH (20:44)
[2017-11-14] MEDS: RILPIVIRINE 25 MG TAB PO SCH (20:44)
[2017-11-14] MEDS: valACYclovir HCL 500 MG TAB PO SCH (20:45)
[2017-11-15 00:25] VITALS: BP 116/63; PULSE 72; RESP 17; TEMP 97.4; O2SAT 96
[2017-11-15] MEDS: SODIUM CHLOR 0.9% 1000 ML INJ 1,000 ML IV SCH ×2 (04:00→11:57)
[2017-11-15 05:05] LABS: HEMATOCRIT 34.4 % (39.0-51.0); HEMOGLOBIN 11.9 GM/DL (13.0-17.0); MEAN CELL VOLUME 99.5 FL (80.0-100.0); MEAN CORPUSCULAR HEMOGLOBIN 34.5 PG (27.0-34.0); MEAN CORPUSCULAR HGB CONC 34.6 % (32.0-36.0); MEAN PLATELET VOLUME 8.7 FL (7.0-11.0); PLATELET COUNT 178 TH/MM3 (150-450); RED BLOOD COUNT 3.46 MIL/MM3 (4.50-5.90); RED CELL DISTRIBUTION WIDTH 13.7 % (11.6-17.2); WHITE BLOOD COUNT 10.2 TH/MM3 (4.0-11.0)
[2017-11-15] MEDS: ACETAMINOPHEN/HYDROcodone 325 MG/5 MG TAB PO PRN ×4 (05:32→22:05)
[2017-11-15 07:31] VITALS: BP 126/54; PULSE 73; RESP 19; TEMP 95.6; O2SAT 96
[2017-11-15] MEDS: DOLUTEGRAVIR SODIUM 50 MG TAB PO SCH (09:00)
[2017-11-15] MEDS: HYDROXYCHLOROQUINE SULFATE 200 MG TAB PO SCH (09:11)
[2017-11-15] MEDS: MULTIVITAMINS/MINERALS THERAPEUTIC TAB PO SCH ×2 (09:11→19:54)
[2017-11-15] MEDS: ATORVASTATIN 10 MG TAB PO SCH (09:12)
[2017-11-15] MEDS: DOCUSATE SODIUM 100 MG CAP PO SCH ×2 (09:14→19:54)
[2017-11-15 11:36] VITALS: BP 114/54; PULSE 59; RESP 18; TEMP 96.1; O2SAT 95
[2017-11-15] MEDS: ENOXAPARIN SODIUM 40 MG/0.4 ML SYRINGE SQ SCH (11:57)
--- NOTE | 2017-11-15 16:16 | PD.ORT.PN ---
Subjective Subjective Remarks pain well controlled Objective Vitals Vital Signs Date Time Temp Pulse Resp B/P (MAP) Pulse Ox O2 Delivery O2 Flow Rate FiO2 11/15/17 11:36 96.1 59 18 114/54 (74) 95 11/15/17 07:31 95.6 73 19 126/54 (78) 96 11/15/17 00:25 97.4 72 17 116/63 (80) 96 11/14/17 20:35 97.4 77 17 142/67 (92) 94 I/O 11/14/17 11/14/17 11/14/17 11/15/17 11/15/17 11/15/17 07:00 15:00 23:00 07:00 15:00 23:00 Intake Total 480 ml 800 ml 360 ml 240 ml 850 ml Output Total 400 ml Balance 80 ml 800 ml 360 ml 240 ml 850 ml Intake Oral 480 ml 800 ml 360 ml 240 ml 850 ml Output Urine Total 400 ml # Voids 4 1 2 3 # Bowel Movements 0 0 0 Result Diagram: 11/15/17 0434 Procedures Right JAY Objective Remarks Dressing is C/D/I. EHL/EHL/TA. no erythema. Calf is soft and nontender. + SILT. Assessment & Plan Assessment and Plan POD #2: Right JAY 1. WBAT RLE 2. Lovenox followed by ASA for DVT prophylaxis 3. Ice to the right hip PRN 4. Stable for discharge to SNF, likely Saturday. 5. F/U in the office with Dr. Jackson or JERRY Gunter as previously scheduled. Duc Jackson MD Nov 15, 2017 16:16
[2017-11-15] MEDS ORDERED: ASPI-183 PO (16:18)
[2017-11-15] MEDS ORDERED: NORC5TAB PO (16:18)
[2017-11-15] MEDS ORDERED: ENOX40IN SQ (16:18)
[2017-11-15] MEDS: RILPIVIRINE 25 MG TAB PO SCH (19:54)
[2017-11-15] MEDS: GABAPENTIN 300 MG CAP PO SCH (19:54)
[2017-11-15] MEDS: ENALAPRIL MALEATE 2.5 MG TAB PO SCH (19:54)
[2017-11-15] MEDS: valACYclovir HCL 500 MG TAB PO SCH (19:54)
[2017-11-15 20:02] VITALS: BP 143/64; PULSE 73; RESP 18; TEMP 96.9; O2SAT 95
[2017-11-15] MEDS ORDERED: SENNOSIDES 8.6 MG TAB PO SCH (21:00)
[2017-11-16 00:36] VITALS: BP 108/53; PULSE 74; RESP 17; TEMP 96.9; O2SAT 95
[2017-11-16 07:05] LABS: HEMATOCRIT 34.4 % (39.0-51.0); HEMOGLOBIN 11.8 GM/DL (13.0-17.0); MEAN CELL VOLUME 99.4 FL (80.0-100.0); MEAN CORPUSCULAR HEMOGLOBIN 34.1 PG (27.0-34.0); MEAN CORPUSCULAR HGB CONC 34.3 % (32.0-36.0); MEAN PLATELET VOLUME 8.6 FL (7.0-11.0); PLATELET COUNT 189 TH/MM3 (150-450); RED BLOOD COUNT 3.46 MIL/MM3 (4.50-5.90); RED CELL DISTRIBUTION WIDTH 13.3 % (11.6-17.2); WHITE BLOOD COUNT 10.9 TH/MM3 (4.0-11.0)
--- NOTE | 2017-11-16 07:43 | PD.ORT.PN ---
Subjective Subjective Remarks Mild to moderate right hip and groin pain. No new leg pain. No nausea. Questions about d/c to SNF and followup. Objective Vitals Vital Signs Date Time Temp Pulse Resp B/P (MAP) Pulse Ox O2 Delivery O2 Flow Rate FiO2 11/16/17 00:36 96.9 74 17 108/53 (71) 95 11/15/17 20:02 96.9 73 18 143/64 (90) 95 11/15/17 11:36 96.1 59 18 114/54 (74) 95 I/O 11/15/17 11/15/17 11/15/17 11/16/17 11/16/17 11/16/17 07:00 15:00 23:00 07:00 15:00 23:00 Intake Total 240 ml 850 ml 480 ml 360 ml Balance 240 ml 850 ml 480 ml 360 ml Intake Oral 240 ml 850 ml 480 ml 360 ml # Voids 2 3 2 2 # Bowel Movements 0 0 0 Result Diagram: 11/16/17 0643 Procedures Right JAY Objective Remarks Laying in bed NAD VSS RLE Hip dressing c/d/i, some swelling, no new drainage, no erythema +motor at, +sens distal, +nvi Neg homans - Seen and evaluated by Dr. Audra Webster Assessment & Plan Ortho Post Op Day #: 3 Problem List: Assessment and Plan POD #3: Right JAY Ortho stable. Ok for d/c to SNF today after PT. PO pain control. PT - WBAT RLE. Walker for gait assist. Lovenox followed by ASA for DVT prophylaxis Ice to the right hip PRN Dressing changes as written. F/U in the office with Dr. Jackson or JERRY Gunter as previously scheduled. Zainab Cortes Nov 16, 2017 07:43
[2017-11-16 08:00] VITALS: BP 126/61; PULSE 62; RESP 17; TEMP 98.1; O2SAT 99
[2017-11-16] MEDS: ACETAMINOPHEN/HYDROcodone 325 MG/5 MG TAB PO PRN ×2 (08:32→14:58)
[2017-11-16] MEDS: DOCUSATE SODIUM 100 MG CAP PO SCH (08:32)
[2017-11-16] MEDS: DOLUTEGRAVIR SODIUM 50 MG TAB PO SCH (08:35)
[2017-11-16] MEDS: MULTIVITAMINS/MINERALS THERAPEUTIC TAB PO SCH (08:37)
[2017-11-16] MEDS: SODIUM CHLOR 0.9% 1000 ML INJ 1,000 ML IV SCH ×2 (08:37)
[2017-11-16] MEDS: ENOXAPARIN SODIUM 40 MG/0.4 ML SYRINGE SQ SCH (11:36)
[2017-11-16 12:10] VITALS: BP 125/60; PULSE 65; RESP 18; TEMP 96.8; O2SAT 99
--- NOTE | 2017-11-20 21:35 | HHI.DS ---
Discharge Summary Admission Date Nov 13, 2017 at 11:59 Discharge Date: Nov 16, 2017 Admitting Diagnosis OA of the right hip Status post total hip replacement, right Diagnosis: (1) Osteoarthritis of right hip Diagnosis: Principal ICD Codes: M16.11 - Unilateral primary osteoarthritis, right hip (2) Status post total hip replacement, right Diagnosis: Principal ICD Codes: Z96.641 - Presence of right artificial hip joint Procedures Right JAY Brief History This is a 67 year old male patient with severe OA of the right hip CBC/BMP: 11/16/17 0643 PE at Discharge Laying in bed NAD VSS RLE Hip dressing c/d/i, some swelling, no new drainage, no erythema +motor at, +sens distal, +nvi Neg homans - Seen and evaluated by Dr. Audra Webster Hospital Course The patient was admitted to the hospital for severe OA of the right hip to have a right JAY. The patient's surgery went well with no complications. The patient is WBAT on the RLE. The patient will take Lovenox followed by ASA for DVT prophylaxis. The patient is on a regular diet. The patient was discharged to SNF and will f/u with Dr. Jackson or JERRY Gunter as previously scheduled. Pt Condition on Discharge: Stable Discharge Disposition: Discharge to SNF Discharge Instructions Diet Instructions: As Tolerated, No Restrictions Activities You Can Perform: Weight Bearing as Serene Activities to Avoid: Strenuous Activity Follow up Referrals: Orthopedics with Duc Jackson MD PCP Follow-up - 2-3 Days SNF/ASSISTED/ with [facility] New Medications: Aspirin (Aspirin) 325 Mg Tab 325 MG PO DAILY for Prevent Blood Clot, #30 TAB 0 Refills Start Aspirin after Lovenox is completed. Commode 3-in-1 (Commode 3-in-1) 1 Mis Mis EA .XX DIRECTED, #1 0 Refills Enoxaparin Inj (Enoxaparin Inj) 40 Mg/0.4 Ml Syr 40 MG SQ DAILY for Blood Clot Prevention, #8 SYRINGE 0 Refills Start Aspirin after Lovenox is completed. Hydrocodone-Acetaminophen ([place]) 5 Mg-325 Mg Tab 1-2 TAB PO Q4H PRN for PAIN, #60 TAB 0 Refills Walker with Front Wheels (Walker with Front Wheels) 1 Mis Mis EA .XX DIRECTED, #1 0 Refills Continued Medications: Cholecalciferol (Vitamin D3) 50,000 Unit Cap 53217 UNITS PO EVERY OTHER WEEK for Nutritional Supplement, #1 BOTTLE 0 Refills Dolutegravir ([place]ay) 50 Mg Tab 50 MG PO DAILY for Mgmt Viral Infection, #30 TAB 0 Refills TAKES AT NIGHT Enalapril (Enalapril) 2.5 Mg Tab 2.5 MG PO HS, #30 TAB 0 Refills Gabapentin (Gabapentin) 600 Mg Tab 600 MG PO HS, #30 TAB 0 Refills Hydroxychloroquine (Hydroxychloroquine) 200 Mg Tab 200 MG PO mowefr, #60 TAB 0 Refills Lamivudine (Lamivudine) 300 Mg Tab 300 MG PO HS for Mgmt Viral Infection, #30 TAB 0 Refills TAKES AT NIGHT Loperamide (Anti-Diarrheal) 2 Mg Cap 2 MG PO DIRECTED, CAP One capsule after each loose stool. Not to exceed 8 capsules per day. Multiple Vitamins W/ Minerals (Thera-M) 1 Tab 1 TAB PO DAILY for Nutritional Supplement, TAB 0 Refills Rilpivirine ([place]urant) 25 Mg Tab 25 MG PO HS for Mgmt Viral Infection, #30 TAB 0 Refills TAKES AT NIGHT Rosuvastatin (Rosuvastatin) 5 Mg Tab 5 MG PO mowefr for Cholesterol Management, #30 TAB 0 Refills Valacyclovir (Valacyclovir) 1 Gm Tab 1000 MG PO HS for Mgmt Viral Infection, #30 TAB 0 Refills Discontinued Medications: Aspirin DR (Aspirin EC) 81 Mg Tabdr 81 MG PO mowefr, TAB 0 Refills [place]-3 Fatty Acids ([place] 3 1000 mg) 300 Mg-1,000 Mg Cap 1 CAP PO DAILY Teja Worthy Nov 20, 2017 21:35
== END 2017-11-16 17:17 | DRG 470 ==
LOC: HSDC 06:52 → EDSTATUS 10:00 → HSDI 11:59 → N06A 16:43
PROVIDERS: ADMIT Orthopaedic Surgery; ATTEND Orthopaedic Surgery
PROC: 0SR902A Replacement of Right Hip Joint with Metal on Polyethylene Synthetic Substitute, Uncemented, Open Approach (ICD-10-PCS; principal; 2017-11-13 09:45)
DX: M16.11 Unilateral primary osteoarthritis, right hip (principal); I10 Essential (primary) hypertension; E78.5 Hyperlipidemia, unspecified; Z21 Asymptomatic human immunodeficiency virus [HIV] infection status; Z87.891 Personal history of nicotine dependence; Z85.828 Personal history of other malignant neoplasm of skin; Z88.1 Allergy status to other antibiotic agents; Z88.0 Allergy status to penicillin; Z88.2 Allergy status to sulfonamides; Z88.8 Allergy status to other drugs, medicaments and biological substances
CPT/HCPCS: 73502; 76000; 85027; 86850; 86900; 86901; 94150; C1776; C9290; J0131; J0690; J1100; J1580; J1650; J2250; J2270; J3010; J3370; J7030; J7050; J7120